=== PATIENT | female | born 1940 | race Caucasian/White ===

== ENCOUNTER → 2022-03-19 08:51 | Outpatient (BNVA) | payer MEDICARE, SELFPAY | PROVIDERS: Visit Provider Podiatrist Foot & Ankle Surgery | DX: M20.41 Other hammer toe(s) (acquired), right foot (principal); M20.42 Other hammer toe(s) (acquired), left foot; E11.8 Type 2 diabetes mellitus with unspecified complications; L60.3 Nail dystrophy; I73.9 Peripheral vascular disease, unspecified | CPT/HCPCS: 11056; 11721; 99204 ==

== ENCOUNTER → 2022-03-22 09:58 | Outpatient (BNVA) | payer MEDICARE, SELFPAY | PROVIDERS: Visit Provider Podiatrist Foot & Ankle Surgery | DX: I73.9 Peripheral vascular disease, unspecified (principal); R09.89 Other specified symptoms and signs involving the circulatory and respiratory systems | CPT/HCPCS: 93922 ==

== ENCOUNTER → 2022-04-08 11:47 | Outpatient (BNVA) | payer MEDICARE, SELFPAY | PROVIDERS: PCP Family Medicine; Visit Provider Internal Medicine | DX: I73.9 Peripheral vascular disease, unspecified (principal); E11.9 Type 2 diabetes mellitus without complications; Z79.84 Long term (current) use of oral hypoglycemic drugs; I10 Essential (primary) hypertension | CPT/HCPCS: 99204 ==

== ENCOUNTER → 2022-07-16 11:23 | Outpatient (BNVA) | payer MEDICARE, OTHER, SELFPAY | PROVIDERS: PCP Family Medicine; Visit Provider Podiatrist Foot & Ankle Surgery | DX: E11.8 Type 2 diabetes mellitus with unspecified complications (principal); L60.3 Nail dystrophy; I73.9 Peripheral vascular disease, unspecified; M20.42 Other hammer toe(s) (acquired), left foot; M20.41 Other hammer toe(s) (acquired), right foot | CPT/HCPCS: 11056; 11721 ==

== ENCOUNTER → 2022-10-31 09:10 | Outpatient (BNVA) | payer MEDICARE, OTHER, SELFPAY | PROVIDERS: PCP Family Medicine; Visit Provider Podiatrist Foot & Ankle Surgery | DX: E11.8 Type 2 diabetes mellitus with unspecified complications (principal); I73.9 Peripheral vascular disease, unspecified; L84 Corns and callosities; L60.3 Nail dystrophy; M20.42 Other hammer toe(s) (acquired), left foot; M20.41 Other hammer toe(s) (acquired), right foot | CPT/HCPCS: 11056; 11721; 73630 ==

== ENCOUNTER → 2023-01-30 08:40 | Outpatient (BNVA) | payer MEDICARE, OTHER, SELFPAY | PROVIDERS: PCP Family Medicine; Visit Provider Podiatrist Foot & Ankle Surgery | DX: E11.8 Type 2 diabetes mellitus with unspecified complications (principal); L60.3 Nail dystrophy; I73.9 Peripheral vascular disease, unspecified; L84 Corns and callosities; M20.42 Other hammer toe(s) (acquired), left foot; M20.41 Other hammer toe(s) (acquired), right foot | CPT/HCPCS: 11056; 11721 ==

== ENCOUNTER → 2023-03-11 14:59 | Outpatient (BNVA) | payer MEDICARE, OTHER, SELFPAY | PROVIDERS: PCP Family Medicine; Visit Provider Podiatrist Foot & Ankle Surgery | DX: L60.3 Nail dystrophy (principal); I73.9 Peripheral vascular disease, unspecified; E11.8 Type 2 diabetes mellitus with unspecified complications; L84 Corns and callosities | CPT/HCPCS: 11055; 11721 ==

== ENCOUNTER → 2023-03-14 15:03 | Outpatient (BNVA) | payer MEDICARE, SELFPAY | PROVIDERS: PCP Family Medicine; Visit Provider Nurse Practitioner Family | DX: M79.641 Pain in right hand (principal) | CPT/HCPCS: 73130; 81000 ==

== ENCOUNTER → 2023-04-23 08:47 | Outpatient (BNVA) | payer MEDICARE, SELFPAY | PROVIDERS: PCP Family Medicine; Visit Provider Podiatrist Foot & Ankle Surgery | DX: I73.9 Peripheral vascular disease, unspecified; L60.3 Nail dystrophy; L97.512 Non-pressure chronic ulcer of other part of right foot with fat layer exposed; L97.412 Non-pressure chronic ulcer of right heel and midfoot with fat layer exposed; E11.621 Type 2 diabetes mellitus with foot ulcer | CPT/HCPCS: 99213 ==

== ENCOUNTER → 2023-04-25 08:05 | Outpatient (BNVA) | payer MEDICARE, SELFPAY | PROVIDERS: PCP Family Medicine; Visit Provider Thoracic Surgery (Cardiothoracic Vascular Surgery) | DX: E11.52 Type 2 diabetes mellitus with diabetic peripheral angiopathy with gangrene (principal); E11.621 Type 2 diabetes mellitus with foot ulcer; L89.892 Pressure ulcer of other site, stage 2; L89.612 Pressure ulcer of right heel, stage 2 | CPT/HCPCS: 11042; 97597; 99213; A6210 ==

== ENCOUNTER → 2023-05-02 10:19 | Outpatient (BNVA) | payer MEDICARE, SELFPAY | PROVIDERS: PCP Family Medicine; Visit Provider Nurse Practitioner Family | DX: E11.52 Type 2 diabetes mellitus with diabetic peripheral angiopathy with gangrene (principal); E11.621 Type 2 diabetes mellitus with foot ulcer; L97.511 Non-pressure chronic ulcer of other part of right foot limited to breakdown of skin; L97.411 Non-pressure chronic ulcer of right heel and midfoot limited to breakdown of skin | CPT/HCPCS: 97597 ==

== ENCOUNTER → 2023-05-09 13:23 | Outpatient (BNVA) | payer MEDICARE, SELFPAY | PROVIDERS: PCP Family Medicine; Visit Provider Thoracic Surgery (Cardiothoracic Vascular Surgery) | DX: E11.52 Type 2 diabetes mellitus with diabetic peripheral angiopathy with gangrene (principal); E11.621 Type 2 diabetes mellitus with foot ulcer; L97.411 Non-pressure chronic ulcer of right heel and midfoot limited to breakdown of skin | CPT/HCPCS: 97597; A6219 ==

== ENCOUNTER → 2023-06-18 09:15 | Outpatient (BNVA) | payer MEDICARE, SELFPAY | PROVIDERS: PCP Family Medicine; Visit Provider Podiatrist Foot & Ankle Surgery | DX: L97.512 Non-pressure chronic ulcer of other part of right foot with fat layer exposed (principal); E11.8 Type 2 diabetes mellitus with unspecified complications; I73.9 Peripheral vascular disease, unspecified; L60.3 Nail dystrophy | CPT/HCPCS: 87070; 87075; 87077; 87186; 87205; 99213 ==

== ENCOUNTER → 2023-06-23 13:10 | Outpatient (BNVA) | payer MEDICARE, SELFPAY | PROVIDERS: PCP Family Medicine; Visit Provider Nurse Practitioner Family | DX: E11.52 Type 2 diabetes mellitus with diabetic peripheral angiopathy with gangrene (principal); E11.621 Type 2 diabetes mellitus with foot ulcer; L97.512 Non-pressure chronic ulcer of other part of right foot with fat layer exposed | CPT/HCPCS: 11042; 99213; A6197 ==

== ENCOUNTER 2023-06-30 13:45 | Outpatient (CLI) | payer MEDICARE, SELFPAY ==
--- NOTE | 2023-06-30 13:55 | XR_ITS ---
WS: [id number] Exam: XR foot RT min 3V* [id number] Date/Time of Exam: 06/30/2023 2:08 PM Reason For Exam: E11.621 - Type 2 diabetes mellitus with foot ulcer There is soft tissue swelling and ulceration of the distal end of the first toe with cortical destruc tion of the distal tuft of the distal first phalanx. Acute osteomyelitis is considered likely. There has been amputation of the distal aspect of the third toe. Degenerative changes in the IP joints and first MP joint. No acute fractures seen. Calcaneal spurs. Degenerative changes in the midfoot joints. Periosteal thickening of the fourth metatarsal. IMPRESSION: 1. Soft tissue swelling and ulceration of the distal end of the first toe with cortical destruction o f the distal tuft of the first toe. This is suspicious for acute osteomyelitis. 2. No other sign of acute bone destruction or fracture. 3. Degenerative changes. Amputation of the distal aspect of the third toe..
== END 2023-06-30 13:46 | disposition home or self-care (01) ==
LOC: RAD 13:46
PROVIDERS: PCP Family Medicine; Visit Provider Nurse Practitioner Family
DX: E11.621 Type 2 diabetes mellitus with foot ulcer (principal); L97.509 Non-pressure chronic ulcer of other part of unspecified foot with unspecified severity; E11.42 Type 2 diabetes mellitus with diabetic polyneuropathy; E11.52 Type 2 diabetes mellitus with diabetic peripheral angiopathy with gangrene; L97.512 Non-pressure chronic ulcer of other part of right foot with fat layer exposed
CPT/HCPCS: 11042; 73630; 99212

== ENCOUNTER → 2023-07-02 11:21 | Outpatient (BNVA) | payer MEDICARE, SELFPAY | PROVIDERS: PCP Family Medicine; Visit Provider Podiatrist Foot & Ankle Surgery | DX: F40.231 Fear of injections and transfusions; E11.42 Type 2 diabetes mellitus with diabetic polyneuropathy; M86.8X7 Other osteomyelitis, ankle and foot | CPT/HCPCS: 99214 ==

== ENCOUNTER 2023-07-04 10:19 | Day surgery (SDC) | payer MEDICARE, SELFPAY ==
[2023-07-04] VITALS (10 sets, daily range): BP systolic 125–160; BP diastolic 59–88; PULSE 69–97; RESP 16–20; TEMP 36.2–36.7; O2SAT 94–100; BMI 29.8
--- NOTE | 2023-07-04 11:06 | W.PM.OPSUD ---
Surgery/Procedure H&P Update DATE OF PROCEDURE: July 04, 2023 DATE H&P PERFORMED: 07/02/23 H&P UPDATE INFORMATION: I have reviewed H&P completed within last 30 days, I have examined patient prior to procedure, No changes to prior documentation and [place] [facility] [place] indicated CHANGES TO PREVIOUS DOCUMENTATION: None PREOP DIAGNOSIS: Osteomyelitis right great toe PLANNED PROCEDURE: Operation Date: 07/04/23 12:00 Proposed Procedures p Amputation Right Great Toe(Right) - Abel Vargas DPM
[2023-07-04] MEDS: clindamycin 600 MG/50 ML PREMIX 100 MG IV (11:33)
[2023-07-04] MEDS: sodium chloride 0.9% 1,000 ML 30 ML IV (11:33)
--- NOTE | 2023-07-04 11:39 | ANES.PREANE2 ---
Pre-Anesthetic Assessment Height/Weight: Height 1.68 m Weight 83.915 kg Temp Pulse Resp BP Pulse Ox O2 Del Method 97.1 F L 97 16 138/88 100 Room Air 07/04/23 10:46 07/04/23 10:46 07/04/23 10:46 07/04/23 10:46 07/04/23 10:46 07/04/23 10:46 Preop Diagnosis: Osteomyelitis right great toe Operation Date: 07/04/23 12:00 Proposed Procedures p Amputation Right Great Toe(Right) - SHANNAN AyersM Was Beta Garett taken within 24 hours: Yes Was Clonidine taken within 24 hours: N/A Last intake: Intake Last Liquid Date 07/03/23 Last Liquid Time 19:30 Last Solid Date 07/03/23 Last Solid Time 18:00 Social No alcohol and No tobacco Exam alert and oriented x 3 Airway Submandibular: within normal limits Cervical ROM: within normal limits Mallampati: Class II Dentition: false Comments: Comments: Upper & lower History/ROS No significant history except as noted and No significant complaints CV/HEM Atrial Fibrillation Metabolic Diabetes Mellitus, Hyperlipidemia and Thyroid Disease Anesthetic Plan ASA status: 3 Anesthesia: General Other: Pt extremely terrified of needles; refuses PIV pre-induction or labs. Explained r/b/a inhalation induction with PIV and labs post-induction. Pt agreed. Risk of > 500 ml blood loss (7ml/kg in children): No Medications/Allergies Home Medications Medication Instructions Recorded Confirmed Last Taken Type aspirin 81 mg tablet,delayed 81 mg PO DAILY 02/05/22 07/04/23 07/03/23 History release (Adult Aspirin Regimen) Diabetic Shoes with 3 Pairs of #1 ea 03/19/22 07/02/23 Unknown Rx Inserts solifenacin 5 mg tablet (Vesicare) 5 mg PO DAILY 30 days #30 tabs 03/12/23 07/03/23 07/03/23 Rx metoprolol tartrate 25 mg tablet See Rx Instructions .Route 03/19/23 07/03/23 Unknown Rx .COMPLEX #30 tabs linezolid 600 mg tablet 600 mg PO BID #28 tabs 06/30/23 07/03/23 07/03/23 Rx Cinnamon 1,000 mg PO DAILY 07/03/23 07/04/23 07/03/23 History Multi Vitamin 07/03/23 07/03/23 History cranberry 650 mg PO DAILY 07/03/23 07/03/23 07/03/23 History furosemide 40 mg tablet 40 mg PO DAILY 07/03/23 07/03/23 07/03/23 History glipizide 5 mg tablet 5 mg PO BID 07/03/23 07/03/23 07/03/23 History hydralazine 50 mg tablet 50 mg PO BID 07/03/23 07/03/23 07/03/23 History levothyroxine 88 mcg tablet 88 mcg PO DAILY 07/03/23 07/03/23 07/03/23 History metoprolol tartrate 25 mg tablet 12.5 mg PO BID 07/03/23 07/03/23 07/03/23 History potassium chloride 10 mEq 10 meq PO DAILY 07/03/23 07/03/23 07/03/23 History tablet,extended release quetiapine 25 mg tablet 25 mg PO DAILY 07/03/23 07/03/23 07/03/23 History rosuvastatin 10 mg tablet 10 mg PO DAILY 07/03/23 07/03/23 07/03/23 History Allergies Allergy/AdvReac Type Severity Reaction Status Date / Time amoxicillin Allergy Unknown Unknown Verified 07/02/23 11:39 baclofen Allergy Unknown Unknown Verified 07/02/23 11:39 cortisone Allergy Unknown Unknown Verified 07/02/23 11:39 gabapentin Allergy Unknown Unknown Verified 07/02/23 11:39 shellfish derived Allergy Unknown Unknown Verified 07/02/23 11:39 Jwnsnoz-LLS-XuF Reductase Allergy Unknown Unknown Verified 07/02/23 11:39 Inhibitor PFSH Anesthesia Medical History Upper respiratory infection Urinary tract infection Encounter for laboratory test Urinary incontinence Dementia History of [place] (myocardial infarction) Essential hypertension Mixed hyperlipidemia Diabetes type 2, controlled Social History Smoking and tobacco/nicotine status: never used tobacco/nicotine Data Anesthesia Cardiac Studies: No Data to Display
[2023-07-04] MEDS: lidocaine 2% INJ 20 mL INJECTION (11:50)
[2023-07-04] MEDS: BUPivacaine 0.5% INJ 30 mL INJECTION (11:50)
--- NOTE | 2023-07-04 11:56 | W.PM.BPON ---
Date of Procedure: 07/04/23 Surgeon: Abel Vargas DPM Cement Rubber(s): Austin Procedure(s) performed: Right great toe amputation Findings of the procedure(s): Osteomyelitis distal phalanx right great toe Estimated blood loss: 5 mL Specimen(s) removed: Right great toe sent to pathology Post-operative diagnosis: Osteomyelitis distal phalanx right great toe Curative level of amputation, no complications with anesthesia or surgery
--- NOTE | 2023-07-04 11:57 | P.OP_ITS ---
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 CPT code 18303 Implants: 3-0 Vicryl, 4-0 nylon Pathology: Right great toe sent to pathology for permanent Surgeon: Abel Vargas DPM Electric Motor [employer] Generator Assembler: [place] Estimated blood loss: 5 9 IV fluids: 0 Urine output: 0 Complications: None Brief History: Patient examined and evaluated, findings and treatment options discussed with patient at length. Patient has a severe needle phobia has not had labs drawn, states that she has not followed with her business management specialist because she has not gotten labs. She has acute osteomyelitis distal phalanx right great toe discussed surgical amputation versus surgical debridement, bone biopsy and PICC line. Patient refuses PICC line due to needle phobia. Wants to be sedated before her IV is started and is requesting amputation right hallux as source control for infection. I reviewed at length with the patient, the risks, potential complications, benefits, alternatives, expectations, and typical outcomes associated with the surgery. The risks and potential complications were explained in detail, including but not limited to infection, wound dehiscence or soft tissue complications, bleeding and hematoma, chronic edema, neuritis or nerve damage producing numbness or chronic pain, CRPS, failure to relieve pain or worsening pain, thick / painful / unsightly scar, limited motion / stiffness, malposition, delayed union, malunion, or nonunion, fracture, reaction to implants, anesthetic complications, venous thromboembolism, and deformity recurrence. I discussed the notion of no regrets with the patient as it pertains to complications and outcomes. The patient seemed to understand the nature of the proposed care and required convalescence. They asked appropriate questions, answered to their satisfaction. They are aware no guarantees can be made as to a satisfactory outcome and they understand there may be other possible unforeseen complications or outcomes not listed here that will be treated accordingly if they arise. There were no written or implied guarantees given to the patient. They gave informed consent to proceed. At this time can be scheduled outpatient she is not showing any signs of systemic sepsis, infection is localized to the distal right great toe. Procedure: Under mild sedation the patient was brought to the operating room and remained on the gurney in supine position. A timeout was performed. Anesthesia was then administered by the anesthesia service. Local anesthesia injected by myself consisting of 30 cc of one-to-one mixture 1% lidocaine and 0.5% Marcaine plain and a right Bird block fashion. Well-padded pneumatic tourniquet applied to the right ankle. Right lower extremity was scrubbed, prepped and draped utilizing normal aseptic technique, right foot was elevated and tourniquet inflated to 250 mmHg. Attention was directed to right hallux where full-thickness wound probing to bone at the distal phalanx was appreciated. A tennis racquet incision was carried out full-thickness circumferentially at the first metatarsal phalangeal joint of the right foot with sharp disarticulation through the metatarsal phalangeal joint leaving adequate skin flaps for closure. Right great toe was passed from the operative field in total and sent to pathology for permanent. The incision was irrigated with saline solution. All bleeders were ligated and cauterized as necessary. Extensor and flexor tendons transected at the proximal margin. After further irrigation first metatarsal head was directly visualized and noted to have healthy appearance with appropriate color and density. At the level of amputation skin margins were bleeding and viable without devitalized tissue. This was then reapproximated utilizing 3-0 Vicryl subcutaneous tissue and 4-0 nylon in the skin. Incision was dressed with Adaptic, sterile 4 x 4's, Kerlix and Luis F wrap followed by application of a cam boot. Tourniquet was then deflated and a prompt hyperemic response was noted to the remaining digits of the right foot 2 through 5. Patient tolerated the procedure and anesthesia well and was transferred to the PACU with vital signs stable and vascular status intact. Following a period of postoperative monitoring she will be discharged home is to decrease her activities, rest and elevate her right foot. She was given at home care instructions, scheduled follow-up and my cell phone number to contact me with any postoperative questions or concerns.
[2023-07-04 12:02] LABS: Basophils # 0.1 10^3/uL (0.0-0.1); Basophils % 0.6 %; Eosinophils # 0.2 10^3/uL (0.0-0.8); Eosinophils % 1.9 %; Hematocrit 41.4 % (36-47); Lymphocytes # 1.6 10^3/uL (0.8-4.8); Lymphocytes % 18.6 %; Mean Corpuscular HGB Conc 34.5 g/dL (30-55); Mean Corpuscular Hemoglobin 32.4 pg (27-33); Mean Corpuscular Volume 93.9 fl (85-98); Mean Platelet Volume 8.9 fL (7.4-10.4); Monocytes # 0.6 10^3/uL (0.2-0.9); Monocytes % 6.6 %; Neutrophils % 72.2 %; Nucleated Red Blood Cells % 0 %; Platelet Count 217 10^3/cmm (157-399); Red Blood Count 4.41 10^6/uL (3.85-5.65); Red Cell Distribution Width 13.6 % (12.1-15.1); White Blood Count 8.74 10^3/uL (3.29-11.43)
[2023-07-04 12:29] LABS: Alanine Aminotransferase 11 U/L (0-33); Albumin Level 3.6 g/dL (3.5-5.2); Alkaline Phosphatase 29 U/L (35-105); Blood Urea Nitrogen 22 mg/dL (8-23); Calcium 8.6 mg/dL (8.5-10.5); Carbon Dioxide 26 mmol/L (22-29); Chloride 100 mmol/L (98-107); Chol HDL Ratio 2.69 mg/dL (0.0-4.40); Cholesterol 132 mg/dL (0-200); Creatinine Clr Calc Pharmacy 30.1013; Globulin 3.4 g/dL (1.3-4.6); Glucose 119 mg/dL (65-115); HDL Cholesterol 49 mg/dL (60-100); LDL Cholesterol Calculated 55 mg/dL (50-129); LDL HDL Ratio 1.12 RATIO (0.00-3.22); Osmolality Calculated 294 mOsm/kg (285-295); Sodium 140 mmol/L (136-145); Total Bilirubin 0.6 mg/dL (0.15-1.2); Triglycerides 139 mg/dL (0-150)
[2023-07-04 12:35] LABS: Anion Gap 17.5 (5-19); Aspartate Amino Transferase 23 U/L (0-32); Estmated Average Glucose 174; Hemoglobin A1C 7.7 % (4.0-6.0); Potassium 3.5 mmol/L (3.5-5.1)
[2023-07-04 13:05] LABS: 25 Hydroxy Vitamin D 46 ng/mL (30-100)
--- NOTE | 2023-07-04 17:57 | ANE.PACU2 ---
Inpatient post-anesthesia follow up: Airway intact: Yes Vital signs: Temperature 97.3 F Pulse Rate 80 Respiratory Rate 18 Blood Pressure 158/79 Pulse Oximetry 100 Oxygen Delivery Me thod Room Air Oxygen Flow Rate Fraction of Inspir ed Oxygen Hydration adequate: Yes Nausea and vomiting: No Pain level: 1 Mental status: Baseline
[2023-07-12 14:35] LABS: PTH Related Peptide (Protein) 16 pg/mL (11-20)
== END 2023-07-04 12:59 | disposition home or self-care (01) ==
PROVIDERS: PCP Nurse Practitioner Family; Visit Provider Podiatrist Foot & Ankle Surgery
PROC: (CPT 28820; principal; 2023-07-04 11:50)
DX: L97.524 Non-pressure chronic ulcer of other part of left foot with necrosis of bone (principal); I48.91 Unspecified atrial fibrillation; E11.9 Type 2 diabetes mellitus without complications; Z79.82 Long term (current) use of aspirin; E78.2 Mixed hyperlipidemia; I25.2 Old myocardial infarction
CPT/HCPCS: 28820; 80053; 80061; 82306; 82542; 83036; 84443; 85025; 88305; 88311; J3490; J7030

== ENCOUNTER → 2023-07-09 08:15 | Outpatient (BNVA) | payer MEDICARE, SELFPAY | PROVIDERS: PCP Nurse Practitioner Family; Visit Provider Podiatrist Foot & Ankle Surgery | DX: Z98.890 Other specified postprocedural states (principal) | CPT/HCPCS: 99024 ==

== ENCOUNTER → 2023-07-17 12:50 | Outpatient (BNVA) | payer MEDICARE, SELFPAY | PROVIDERS: PCP Nurse Practitioner Family; Visit Provider Nurse Practitioner Family | DX: E11.8 Type 2 diabetes mellitus with unspecified complications (principal); N30.00 Acute cystitis without hematuria; R32 Unspecified urinary incontinence | CPT/HCPCS: 82570; 84156 ==

== ENCOUNTER → 2023-08-01 14:10 | Outpatient (BNVA) | payer MEDICARE, SELFPAY | PROVIDERS: PCP Nurse Practitioner Family; Visit Provider Podiatrist Foot & Ankle Surgery | DX: M79.671 Pain in right foot (principal); E11.42 Type 2 diabetes mellitus with diabetic polyneuropathy; M20.41 Other hammer toe(s) (acquired), right foot; M20.42 Other hammer toe(s) (acquired), left foot; M21.41 Flat foot [pes planus] (acquired), right foot; M21.42 Flat foot [pes planus] (acquired), left foot; L60.3 Nail dystrophy; M72.2 Plantar fascial fibromatosis | CPT/HCPCS: 11721; 73630; 99213 ==

== ENCOUNTER → 2023-08-25 13:09 | Outpatient (BNVA) | payer MEDICARE, SELFPAY | PROVIDERS: PCP Nurse Practitioner Family; Visit Provider Podiatrist Foot & Ankle Surgery | DX: E11.621 Type 2 diabetes mellitus with foot ulcer; L97.522 Non-pressure chronic ulcer of other part of left foot with fat layer exposed; E11.42 Type 2 diabetes mellitus with diabetic polyneuropathy; M20.41 Other hammer toe(s) (acquired), right foot; M20.42 Other hammer toe(s) (acquired), left foot; M21.41 Flat foot [pes planus] (acquired), right foot; M21.42 Flat foot [pes planus] (acquired), left foot; L60.3 Nail dystrophy; M72.2 Plantar fascial fibromatosis | CPT/HCPCS: 11042 ==

== ENCOUNTER 2023-09-14 08:03 | Emergency (ER) | payer MEDICARE, SELFPAY ==
[2023-09-14 08:05] VITALS: BP 142/78; PULSE 111; TEMP 36.8; O2SAT 98; BMI 29.7
--- NOTE | 2023-09-14 08:05 | XRR_ITS ---
PROCEDURE INFORMATION: Exam: XR Right Hip Exam date and time: 09/14/2023 8:18 AM Age: 83 years old Clinical indication: Injury or trauma; Fall; Blunt trauma (contusions or hematomas); Right; Prior surgery; Surgery date: 6+ months; Surgery type: RT hip; Additional info: Fall 3 days ago TECHNIQUE: Imaging protocol: Radiologic exam of the right hip. Views: 1 view hip with pelvis when performed. COMPARISON: No relevant prior studies available. FINDINGS: Bones/joints: Surgical changes of right hip arthroplasty with anatomic alignment. Surgical changes of greater trochanter open reduction with internal fixation. No hardware complications. Moderate degenerative disease of the right sacroiliac joint and symphysis pubis. No acute fracture or dislocation. Soft tissues: Unremarkable. Vasculature: Vascular calcifications. XR/XR hip RT 2-3V wo/w pel* [id number] IMPRESSION: No acute fracture or dislocation.
--- NOTE | 2023-09-14 08:06 | ED_ITS ---
HPI - Fall General: Chief Complaint: Extremity Injury, Lower Stated Complaint: R hip pain Time Seen by Provider: 09/14/23 08:04 Source: patient and EMS Mode of arrival: EMS Limitations: no limitations History of Present Illness: 83-year-old female who had had a fall 2 days ago. States she landed on her right hip she had surgery on her right hip before states she was ambulatory but had worsening pain especially with ambulation has had a hard time walking today denies any other injuries from her fall. Associated symptoms-after fall: Denies abdominal pain, chest pain, headache(s) or neck pain Review of Systems Const: Denies: fever(s), chills, body aches or change in appetite ENMT: Denies: throat pain or dental pain Card: Denies: chest pain Resp: Denies: dyspnea GI: Denies: abdominal pain, nausea, vomiting or diarrhea Musc: Reports: extremity pain; Denies: neck pain or back pain Skin/Breast: Denies: rash Neuro: Denies: headache(s) PFSH ED PFSH: Medical History Upper respiratory infection Urinary tract infection Encounter for laboratory test Urinary incontinence Dementia History of [place] (myocardial infarction) Essential hypertension Mixed hyperlipidemia Diabetes type 2, controlled Social History Smoking and tobacco/nicotine status: never used tobacco/nicotine Physical Exam Const: COMMON NORMALS: no acute distress and healthy appearing HENMT: COMMON NORMALS: normocephalic and atraumatic HEAD & SCALP: normocephalic and atraumatic Eye: COMMON NORMALS: conjunctivae normal CONJUNCTIVA: Yes conjunctivae normal Neck/C-Spine: COMMON NORMALS: full ROM and supple Chest: COMMONS NORMALS: normal inspection of the chest Resp: COMMON NORMALS: normal respiratory effort, No retractions, No use of accessory muscles and clear to auscultation bilaterally AUSCULTATION: clear to auscultation bilaterally Cardio: COMMON NORMALS: regular rate, regular rhythm and No murmurs present (Cardio) RATE: regular rate RHYTHM: regular rhythm GI: COMMON NORMALS: Normal to inspection, nondistended, normoactive bowel sounds present, Soft to palpation, non-tender and no masses PALPATION: Yes Soft to palpation Extremity: NARRATIVE EXTREMITY EXAM: tenderness over right hip Neuro: COMMON NORMALS: moves all extremities and no focal motor deficits Psych: COMMON NORMALS: mental status grossly normal, Normal thought process present and cooperative THOUGHT PROCESS: Normal thought process present Skin: COMMON NORMALS: no rashes or lesions noted and no wounds GENERAL SKIN EXAM: no rashes or lesions noted Course Vital Signs: Vital signs: Vital Signs Temperature 98.2 F 09/14/23 08:05 Pulse Rate 100 09/14/23 08:59 Blood Pressure 163/74 09/14/23 08:59 Pulse Oximetry 96 09/14/23 08:59 Oxygen Delivery Me thod Nasal Cannula 09/14/23 08:59 MDM - Fall Medical Decision Making Patient presents here with a contusion from a fall x-ray CT is normal patient stable for discharge back with family Medical Records I reviewed the patient's medical records. Lab Data Radiology Impressions Hip/Pelvis X-Ray 09/14/23 08:05 IMPRESSION: No acute fracture or dislocation. Pelvis CT 09/14/23 10:10 IMPRESSION: No acute fracture or dislocation. COMMENTS: Consistent with the [employer]'s Incidental Findings Committee white paper (J Am Misha Radiol 2018): Any incidental renal lesion less than 1 cm or classified as too small to characterize, or any incidental cystic renal lesion characterized as simple-appearing, is likely benign. No follow-up imaging is recommended for these lesions per consensus recommendations based on imaging criteria. All radiology interpretation(s) finalized by discharge Discharge Plan Discharge Patient Disposition: Home Clinical Impression: Fall Contusion of hip Qualifiers: Encounter type: initial encounter Laterality: right Qualified Code(s): S70.01XA - Contusion of right hip, initial encounter Condition: Stable Prescriptions: New hydrocodone-acetaminophen 5-325 mg tablet 1 tab PO Q6H PRN (Reason: pain) Qty: 14 0RF No Action aspirin [Adult Aspirin Regimen] 81 mg tablet,delayed release (DR/EC) 81 mg PO DAILY solifenacin [Vesicare] 5 mg tablet 5 mg PO DAILY 30 Days Qty: 30 0RF (DME) Diabetic Shoes with toe filler to right great toe 3 Pairs of Inserts See Rx Instructions .Route .MEDSUPPLY Qty: 1 0RF Rx Instructions: As directed by HOME quetiapine 25 mg tablet 25 mg PO QPM furosemide 40 mg tablet 40 mg PO DAILY levothyroxine 88 mcg tablet 88 mcg PO DAILY glipizide 5 mg tablet 5 mg PO BID rosuvastatin 10 mg tablet 10 mg PO DAILY Cinnamon 2,000 mg PO DAILY Daily Multi-Vitamin Tablet 1 tab PO DAILY hydrocodone-acetaminophen 5-325 mg tablet 1 tab PO Q6H PRN (Reason: Pain) cranberry extract 650 mg Capsule 650 mg PO DAILY Rx Instructions: administer with a meal potassium chloride 10 mEq tablet extended release 10 meq PO DAILY hydralazine 50 mg tablet 50 mg PO BID metoprolol tartrate 25 mg tablet 12.5 mg PO BID Discharge Orders: Discharge ED (Routine); Ordered 09/14/23 Ordered By: Tiny Perez Other Ambulatory Orders: DME: Wheelchair (Order) Location: None Selected Ordered By: Tiny Perez Referrals: CRYSTAL Couch, DIRECTOR OF LEADERSHIP DEVELOPMENT [Primary Care Provider] - Discharge Diet: Advance as tolerated Discharge Activity: Resume usual activity Patient Instructions: Hip Contusion (ED), Opioid Safety Coding Level of Care Code ED Outside Residential Sales Professional for Adrian Nobles
[2023-09-14 08:59] VITALS: BP 163/74; PULSE 100; O2SAT 96
[2023-09-14 10:00] VITALS: BP 120/72; PULSE 110; O2SAT 97
--- NOTE | 2023-09-14 10:10 | CTR_ITS ---
PROCEDURE INFORMATION: Exam: CT Pelvis Without Contrast; Skeletal Exam date and time: 09/14/2023 11:05 AM Age: 83 years old Clinical indication: Injury or trauma; Fall; Blunt trauma (contusions or hematomas); Right; Hip and pelvic region; Prior surgery; Surgery date: 6+ months; Surgery type: Lev hips TECHNIQUE: Imaging protocol: Computed tomography of the pelvis without contrast. Exam focused on the skeleton. Radiation optimization: All CT scans at this facility use at least one of these dose optimization techniques: automated exposure control; mA and/or kV adjustment per patient size (includes targeted exams where dose is matched to clinical indication); or iterative reconstruction. COMPARISON: CR XR hip RT 2-3V wo/w pel* [id number] 09/14/2023 8:18 AM RADIATION DOSE METRICS: Total DLP (mGy-cm): 522.34 FINDINGS: Gallbladder and bile ducts: Calcified gallstones. Kidneys and ureters: Nonobstructing stone in the lower pole of the right kidney measuring 4 mm. 2 mm nonobstructing stone in the lower pole of the left kidney. Bilateral simple cysts in the kidneys. Intestine: Diverticulosis of the colon. Vasculature: Vascular calcifications. Bones/joints: Demineralization of the visualized bones. Moderate degenerative disease of bilateral sacroiliac joints. Ankylosis of the facet joint of the lower lumbar spine. Post bilateral total hip arthroplasty. Chondrocalcinosis of the symphysis pubis. No acute fracture or dislocation. Soft tissues: Unremarkable. CT/CT pelvis wo con [id number] IMPRESSION: No acute fracture or dislocation. COMMENTS: Consistent with the [employer]'s Incidental Findings Committee white paper (J Am Misha Radiol 2018): Any incidental renal lesion less than 1 cm or classified as too small to characterize, or any incidental cystic renal lesion characterized as simple-appearing, is likely benign. No follow-up imaging is recommended for these lesions per consensus recommendations based on imaging criteria.
[2023-09-14 11:54] VITALS: BP 121/52; PULSE 95; O2SAT 96
== END 2023-09-14 11:50 | disposition home or self-care (01) ==
PROVIDERS: Emergency Provider Emergency Medicine; PCP Nurse Practitioner Family
DX: S70.01XA Contusion of right hip, initial encounter (principal); Z79.82 Long term (current) use of aspirin; Z79.84 Long term (current) use of oral hypoglycemic drugs; F03.90 Unspecified dementia, unspecified severity, without behavioral disturbance, psychotic disturbance, mood disturbance, and anxiety; I25.2 Old myocardial infarction; I10 Essential (primary) hypertension; E78.2 Mixed hyperlipidemia; E11.9 Type 2 diabetes mellitus without complications; W19.XXXA Unspecified fall, initial encounter
CPT/HCPCS: 72192; 73502; 99284

== ENCOUNTER → 2023-10-08 11:13 | Outpatient (BNVA) | payer MEDICARE, SELFPAY | PROVIDERS: PCP Nurse Practitioner Family; Visit Provider Podiatrist Foot & Ankle Surgery | DX: E11.8 Type 2 diabetes mellitus with unspecified complications (principal); Z89.411 Acquired absence of right great toe; E11.42 Type 2 diabetes mellitus with diabetic polyneuropathy; L60.3 Nail dystrophy; M72.2 Plantar fascial fibromatosis; E11.621 Type 2 diabetes mellitus with foot ulcer; L97.522 Non-pressure chronic ulcer of other part of left foot with fat layer exposed; L97.421 Non-pressure chronic ulcer of left heel and midfoot limited to breakdown of skin | CPT/HCPCS: 99213 ==

== ENCOUNTER → 2023-10-16 11:58 | Outpatient (BNVA) | payer MEDICARE, SELFPAY | PROVIDERS: PCP Nurse Practitioner Family; Visit Provider Podiatrist Foot & Ankle Surgery | DX: E11.621 Type 2 diabetes mellitus with foot ulcer; L97.512 Non-pressure chronic ulcer of other part of right foot with fat layer exposed; L97.312 Non-pressure chronic ulcer of right ankle with fat layer exposed; Z89.411 Acquired absence of right great toe; E11.42 Type 2 diabetes mellitus with diabetic polyneuropathy | CPT/HCPCS: 29445 ==

== ENCOUNTER → 2023-10-22 09:45 | Outpatient (BNVA) | payer MEDICARE, SELFPAY | PROVIDERS: PCP Nurse Practitioner Family; Visit Provider Podiatrist Foot & Ankle Surgery | DX: E11.621 Type 2 diabetes mellitus with foot ulcer; L97.512 Non-pressure chronic ulcer of other part of right foot with fat layer exposed; L97.312 Non-pressure chronic ulcer of right ankle with fat layer exposed; E11.42 Type 2 diabetes mellitus with diabetic polyneuropathy; M20.41 Other hammer toe(s) (acquired), right foot; M20.42 Other hammer toe(s) (acquired), left foot | CPT/HCPCS: 29445 ==

== ENCOUNTER → 2023-10-31 13:11 | Outpatient (BNVA) | payer MEDICARE, SELFPAY | PROVIDERS: PCP Nurse Practitioner Family; Visit Provider Podiatrist Foot & Ankle Surgery | DX: E11.621 Type 2 diabetes mellitus with foot ulcer; L97.512 Non-pressure chronic ulcer of other part of right foot with fat layer exposed; L97.312 Non-pressure chronic ulcer of right ankle with fat layer exposed; Z51.89 Encounter for other specified aftercare; Z89.411 Acquired absence of right great toe; E11.42 Type 2 diabetes mellitus with diabetic polyneuropathy | CPT/HCPCS: 29445 ==

== ENCOUNTER → 2023-11-10 12:35 | Outpatient (BNVA) | payer MEDICARE, SELFPAY | PROVIDERS: PCP Nurse Practitioner Family; Visit Provider Podiatrist Foot & Ankle Surgery | DX: E11.621 Type 2 diabetes mellitus with foot ulcer; L97.512 Non-pressure chronic ulcer of other part of right foot with fat layer exposed; L97.312 Non-pressure chronic ulcer of right ankle with fat layer exposed; Z89.411 Acquired absence of right great toe; E11.42 Type 2 diabetes mellitus with diabetic polyneuropathy; Z51.89 Encounter for other specified aftercare | CPT/HCPCS: 29445 ==

== ENCOUNTER → 2023-11-17 12:49 | Outpatient (BNVA) | payer MEDICARE, SELFPAY | PROVIDERS: PCP Nurse Practitioner Family; Visit Provider Podiatrist Foot & Ankle Surgery | DX: E11.621 Type 2 diabetes mellitus with foot ulcer; L97.312 Non-pressure chronic ulcer of right ankle with fat layer exposed; Z89.411 Acquired absence of right great toe; E11.42 Type 2 diabetes mellitus with diabetic polyneuropathy | CPT/HCPCS: 29445 ==

== ENCOUNTER → 2023-11-24 14:42 | Outpatient (BNVA) | payer MEDICARE, SELFPAY | PROVIDERS: PCP Nurse Practitioner Family; Visit Provider Podiatrist Foot & Ankle Surgery | DX: E11.42 Type 2 diabetes mellitus with diabetic polyneuropathy (principal); M20.41 Other hammer toe(s) (acquired), right foot; M20.42 Other hammer toe(s) (acquired), left foot; E11.621 Type 2 diabetes mellitus with foot ulcer; L97.312 Non-pressure chronic ulcer of right ankle with fat layer exposed | CPT/HCPCS: 99213 ==

== ENCOUNTER → 2023-12-09 15:30 | Outpatient (BNVA) | payer MEDICARE, SELFPAY | PROVIDERS: PCP Nurse Practitioner Family; Visit Provider Podiatrist Foot & Ankle Surgery | DX: E11.42 Type 2 diabetes mellitus with diabetic polyneuropathy (principal); M20.41 Other hammer toe(s) (acquired), right foot; M20.42 Other hammer toe(s) (acquired), left foot; E11.621 Type 2 diabetes mellitus with foot ulcer; L97.312 Non-pressure chronic ulcer of right ankle with fat layer exposed | CPT/HCPCS: 99213 ==

== ENCOUNTER → 2024-01-07 08:03 | Outpatient (BNVA) | payer MEDICARE, SELFPAY | PROVIDERS: PCP Nurse Practitioner Family; Visit Provider Podiatrist Foot & Ankle Surgery | DX: E11.621 Type 2 diabetes mellitus with foot ulcer; L97.312 Non-pressure chronic ulcer of right ankle with fat layer exposed; Z89.411 Acquired absence of right great toe; E11.42 Type 2 diabetes mellitus with diabetic polyneuropathy | CPT/HCPCS: 99213 ==

== ENCOUNTER 2025-02-17 12:01 | Inpatient (IN) | payer MEDICARE, SELFPAY ==
[2025-02-17] VITALS (43 sets, daily range): BP systolic 102–163; BP diastolic 52–124; PULSE 65–142; RESP 11–29; TEMP 36.5–37.2; O2SAT 91–100; BMI 26.4
--- NOTE | 2025-02-17 12:05 | ECG_ITS ---
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 Measurements Intervals [place] Rate: 127 P: 0 DC: 0 QRS: -78 QRSD: 143 T: 7 QT: 357 QTc: 521 Interpretive Statements ATRIAL FIBRILLATION WITH RAPID VENTRICULAR RESPONSE RIGHT BUNDLE BRANCH BLOCK [120+ ms QRS DURATION, UPRIGHT V1, 40+ ms S IN I/aVL/V4/V5/V6] LEFT ANTERIOR FASCICULAR BLOCK [QRS AXIS <= -45, QR IN I, RS IN II] No previous ECG available for comparison Electronically Signed On 02-19-2025 12:03:32 CDT by Dylon Ochoa M.D. [email or web address]
--- NOTE | 2025-02-17 12:06 | XR_ITS ---
WS: [id number] XR chest 1V portable [id number] REASON FOR EXAM: dyspnea A-fib RVR FINDINGS: Moderate tortuosity of the ascending and descending thoracic aorta with calcification. Cardiomegaly. No significant central pulmonary venous congestion. Opacification of the left lower hemithorax. Appears to be due to pleural effusion atelectasis and diffuse reticular and groundglass opacities within the left lower lung. Moderate degenerative spondylosis in the thoracic spine. 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 XR/XR chest 1V portable [id number] IMPRESSION: Abnormality in the left lower hemithorax atypical for congestive failure more c ompatible with pneumonitis and effusion.
--- NOTE | 2025-02-17 12:16 | ED_ITS ---
HPI - Arrhythmia/Palpitations 2 General: Chief Complaint: Arrhythmia/Palpitations Stated Complaint: afib with rvr Time Seen by Provider: 02/17/25 12:05 History of Present Illness: 84-year-old female presents emergency ro om from detention with complaints of elevated blood sugar and rapid heart rate. Patient has a history of A-fib. On arrival here she is in A-fib with RVR. She has dementia she is unable to give any history to contribute all history is from EMS and detention as well as old records. Related Data Home Medications ?Medication ?Instructions ?Recorded ?Confirmed aluminum-mag hydroxide-simethicone 30 ml PO QID PRN in digestion 02/18/25 02/18/25 200 mg-200 mg-20 mg/5 mL oral susp magnesium hydroxide 400 mg/5 mL 30 ml PO DAILY PRN Con stipation 02/18/25 02/18/25 oral suspension (Milk of Magnesia) naloxone 2 mg/2 mL syringe kit 2 mg IM Q2M PRN overdos e 02/18/25 02/18/25 polyethylene glycol 3350 17 17 g PO DAILY PRN Constipa tion 02/18/25 02/18/25 gram/dose oral powder Previous Rx's ?Medication ?Instructions ?Recorded Diabetic Shoes with toe filler to #1 ea 08/01/23 right great toe 3 Pairs of Inserts furosemide 40 mg tablet See Rx Instructions .Route 0 09/03/24 .COMPLEX #90 tabs hydralazine 50 mg tablet See Rx Instructions .Route 0 09/03/24 .COMPLEX 90 days #180 tabs levothyroxine 88 mcg tablet See Rx Instructions .Route 09/03/24 .COMPLEX #90 tabs metoprolol tartrate 25 mg tablet 12.5 mg (1/2 x 25 mg) PO BID 90 09/03/24 days #90 tabs potassium chloride 10 mEq See Rx Instructions .Route 0 09/03/24 tablet,extended release .COMPLEX #90 tabs quetiapine 25 mg tablet 25 mg PO DAILY 90 days #90 t abs 09/03/24 rosuvastatin 10 mg tablet See Rx Instructions .Route 0 09/03/24 .COMPLEX 90 days #90 tabs solifenacin 5 mg tablet See Rx Instructions .Route 0 09/03/24 .COMPLEX 90 days #90 tabs Allergies Allergy/AdvReac Type Severity Reaction Status Date / Time amoxicillin Allergy Unknown Unknown Verified 09/03/24 15:04 baclofen Allergy Unknown Unknown Verified 09/03/24 15:04 cortisone Allergy Unknown Unknown Verified 09/03/24 15:04 gabapentin Allergy Unknown Unknown Verified 09/03/24 15:04 shellfish derived Allergy Unknown Unknown Verified 09/03/24 15:04 [id number]-XqD Reductase Allergy Unknown Unknown Verified 09/03/24 15:04 Inhibitor PFSH ED 2 PFSH: Medical History Uncontrolled type 2 diabetes mellitus Advanced dementia 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 and midfoot with fat layer exposed Atrial fibrillation Non-pressure chronic ulcer of other part of right foot with fat layer exposed Back pain, chronic Upper respiratory infection Urinary tract infection Encounter for laboratory test Urinary incontinence Dementia History of VT (myocardial infarction) Essential hypertension Mixed hyperlipidemia Diabetes type 2, controlled Surgical History S/P foot surgery Social History Smoking and tobacco/nicotine status: unknown if used tobacco/nicotine Physical Exam 2 Const: GENERAL APPEARANCE: cooperative ORIENTATION/CONSCIOUSNESS: Yes awake (Responsible stimulation) and Yes confused HENMT: COMMON NORMALS: normocephalic, atraumatic and hearing grossly normal bilaterally HEAD & SCALP: normocephalic and atraumatic Resp: COMMON NORMALS: normal respiratory effort, No retractions, No use of accessory muscles and clear to auscultation bilaterally AUSCULTATION: clear to auscultation bilaterally Cardio: COMMON NORMALS: No murmurs present (Cardio) RATE: tachycardic R HYTHM: abnormal rhythm irregularly irregular GI: COMMON NORMALS: Soft to palpation and No hepatosplenomegaly present A USCULTATION: Yes normoactive bowel sounds PALPATION: Yes Soft to palpation, No Tenderness to palpation present (GI), No Guarding due to palpation present (GI) and Yes No hepatosplenomegaly present Extremity: COMMON NORMALS: normal to inspection, capillary refill normal, no clubbing, cyanosis or edema, no calf tenderness and no pedal edema Skin: COMMON NORMALS: no rashes or lesions noted GENERAL SKIN EXAM: no rashes or lesions noted Course 2 Vital Signs: Vital signs: Vital Signs Temperature 98.1 F 02/21/25 07:44 Pulse Rate 69 02/21/25 07:44 Respiratory Rate 18 02/21/25 07:44 Blood Pressure 103/53 02/21/25 07:44 Pulse Oximetry 96 02/21/25 07:44 Oxygen Delivery Me thod Room Air 02/21/25 07:44 MDM - Arrhythmia/Palpitations Medical Decision Making Patient seen and evaluated difficult evaluation because of her dementia she is not really able to add anything history is from the chart EMS report and information we received when we called detention and talked to her primary care nurse. Patient has hyperglycemia. Evaluate for DKA A-fib congestive heart failure pneumonia secondary infections as well as sepsis cellulitis cystitis. Labs and imaging ordered. Labs imaging EKG interpreted as found in the chart from initial workup A-fib with RVR. Patient given IV fluids and insulin. Started on diltiazem given IV push and drip. Blood sugars are improving ketones positive VBG does not show acidosis however patient is severely hyperglycemic has a metabolic acidosis initially with Anion gap of 30.1 repeat gap 24.7 after fluids is improving. Discussed with hospitalist orders written for admission to ICU. Her A-fib was initially treated with Cardizem then started a Cardizem drip rate is improved holding at 100. She is getting a sepsis bolus in the event and antibiotics for her UTI. Admit to ICU. Medical Records I reviewed the patient's medical records. Lab Data I reviewed the patient's lab results. 02/18/25 02:10 02/18/25 06:32 Radiology Impressions Chest X-Ray 02/17/25 12:06 IMPRESSION: Abnormality in the left lower hemithorax atypical for congestive failure more compatible with pneumonitis and effusion. Foot X-Ray 02/17/25 13:46 IMPRESSION: Erosion of the distal head of the third metatarsal as above above unknown chronicity. Chronic changes in the forefoot as above. Abdomen/Pelvis CT 02/18/25 08:45 IMPRESSION: 1. Cholelithiasis without evidence for acute cholecystitis. 2. Small LEFT pleural effusion with compressive atelectasis. 3. Moderate cardiomegaly. 4. Partially calcified exophytic mass from the upper pole RIGHT kidney measures 2.2 x 2.0 cm. Indeterminate without further evaluation with and without IV contrast. 5. RIGHT renal cyst. 6. Densely calcified aorta and splenic artery. 7. No ascites or adenopathy. Laboratory Results WBC 13.86 10^3/uL (3.29-11.43) H 02/17/25 12:30 RBC 4.79 10^6/uL (3.85-5.65) 02/17/25 12:30 Hgb 14.90 g/dL (11.27-16.99) 02/17/25 12:30 Hct 44.9 % (36-47) 02/17/25 12:30 MCV 93.7 fl (85-98) 02/17/25 12:30 MCH 31.1 pg (27-33) 02/17/25 12:30 MCHC 33.2 g/dL (30-55) 02/17/25 12:30 RDW 13.4 % (12.1-15.1) 02/17/25 12:30 Plt Count 353 10^3/cmm (157-399) 02/17/25 12:30 MPV 9.5 fL (7.4-10.4) 02/17/25 12:30 Neut % (Auto) 88.0 % 02/17/25 12:30 Lymph % (Auto) 4.0 % 02/17/25 12:30 [place] % (Auto) 7.2 % 02/17/25 12:30 Eos % (Auto) 0.0 % 02/17/25 12:30 Baso % (Auto) 0.2 % 02/17/25 12:30 Neut # (Auto) 12.19 10^3/uL (1.8-7.7) H 02/17/25 12:30 Lymph # (Auto) 0.6 10^3/uL (0.8-4.8) L 02/17/25 12:30 [place] # (Auto) 1.0 10^3/uL (0.2-0.9) H 02/17/25 12:30 Eos # (Auto) 0.0 10^3/uL (0.0-0.8) 02/17/25 12:30 Baso # (Auto) 0.0 10^3/uL (0.0-0.1) 02/17/25 12:30 Nucleated RBC % (auto) 0 % 02/17/25 12:30 Nucleated RBCs # 0.0 /100WBC 02/17/25 12:30 Specimen Type Arterial 02/17/25 12:59 Sample Site Radial, left 02/17/25 12:59 ABG pH 7.47 (7.35-7.45) H 02/17/25 12:59 ABG pCO2 35.7 mmHg (35-45) 02/17/25 12:59 ABG pO2 94.8 mmHg (80.0-100.0) 02/17/25 12:59 ABG PO2/FiO2 Ratio 451 02/17/25 12:59 ABG HCO3 26.1 mmol/L (22-26) H 02/17/25 12:59 ABG O2 Saturation 98.2 02/17/25 12:59 ABG Base Excess 2.7 mmol/L (-2.0-2.0) H 02/17/25 12:59 Gurdeep Test Pos 02/17/25 12:59 A-a O2 Gradient 1.3 mmHg (5-10) L 02/17/25 12:59 Hematocrit 46.8 % (37-47) 02/17/25 12:59 Hgb O2 Saturation 96.2 % (95-100) 02/17/25 12:59 Carboxyhemoglobin 1.0 %THgb (0.4-20.1) 02/17/25 12:59 Methemoglobin 1.0 % (0.4-1.5) 02/17/25 12:59 Total Hemoglobin 15.3 g/dL (12-16) 02/17/25 12:59 Sodium 141.0 mmol/L (131-143) 02/17/25 12:59 Potassium 3.4 mmol/L (3.5-5.0) L 02/17/25 12:59 Glucose 758.0 mg/dL (70-115) H 02/17/25 12:59 Ionized Calcium 1.1 mmol/L (1.1-1.4) 02/17/25 12:59 O2 Delivery Device Room air 02/17/25 12:59 FiO2 21.0 % 02/17/25 12:59 Production Engine Repairer ID Cak 02/17/25 12:59 Sodium 139 mmol/L (136-145) 02/17/25 12:30 Potassium 3.6 mmol/L (3.5-5.1) 02/17/25 12:30 Chloride 85 mmol/L (98-107) L 02/17/25 12:30 Carbon Dioxide 26 mmol/L (22-29) 02/17/25 12:30 Anion Gap 31.6 (5-19) H 02/17/25 12:30 BUN 33 mg/dL (8-23) H 02/17/25 12:30 Creatinine 1.6 mg/dL (0.5-0.9) H 02/17/25 12:30 GFR Calculation Not Reportable 02/17/25 12: Glucose 784 mg/dL (65-115) H* 02/17/25 12:30 POC Glucose > 600 mg/dL (70-110) H* 02/17/25 12:07 Estimat Average Glucose 372 02/17/25 12:30 Hemoglobin A1c 14.6 % (4.0-6.0) H 02/17/25 12:30 Calculated Osmolality 333 mOsm/kg (285-295) H 02/17/25 12:30 Lactic Acid 2.5 mmol/L (0.5-2.2) H 02/17/25 12:30 Calcium 9.4 mg/dL (8.5-10.5) 02/17/25 12:30 Total Bilirubin 0.5 mg/dL (0.15-1.2) 02/17/25 12: AST 9 U/L (0-32) 02/17/25 12:30 ALT 6 U/L (0-33) 02/17/25 12:30 Alkaline Phosphatase 58 U/L (35-105) 02/17/25 12:30 Total Protein 7.8 g/dL (6.6-8.7) 02/17/25 12:30 Albumin 3.4 g/dL (3.5-5.2) L 02/17/25 12:30 Globulin 4.4 g/dL (1.3-4.6) 02/17/25 12:30 Vitamin B12 502 pg/mL (232-1245) 02/17/25 12:30 Procalcitonin 0.18 ng/mL (0-0.5) 02/17/25 12:30 TSH 1.47 uIU/mL (0.27-4.20) 02/17/25 12:30 Serum Ketones Positive (Negative) H 02/17/25 12:30 All radiology interpretation(s) finalized by discharge EKG Data EKG 1: EKG interpretation date: 02/17/25 Prior EKG tracings: available for review Interpretation: EKG 1016 2025-04-08 A-fib with rapid ventricular sponsor rate of 127 QTc 521. Right bundle branch block present. No previous EKGs for comparison. No acute ST changes noted. Nonspecific Other EKG comments: Chest X-Ray 02/17/25 12:06 IMPRESSION: Abnormality in the left lower hemithorax atypical for congestive failure more compatible with pneumonitis and effusion. Foot X-Ray 02/17/25 13:46 IMPRESSION: Erosion of the distal head of the third metatarsal as above above unknown chronicity. Chronic changes in the forefoot as above. Abdomen/Pelvis CT 02/18/25 08:45 IMPRESSION: 1. Cholelithiasis without evidence for acute cholecystitis. 2. Small LEFT pleural effusion with compressive atelectasis. 3. Moderate cardiomegaly. 4. Partially calcified exophytic mass from the upper pole RIGHT kidney measures 2.2 x 2.0 cm. Indeterminate without further evaluation with and without IV contrast. 5. RIGHT renal cyst. 6. Densely calcified aorta and splenic artery. 7. No ascites or adenopathy. Critical Care Time 2 Critical Care Time: Critical Care Time: Yes Total Critical Care Time: 40 Attestation: The high probability of a clinically significant, sudden or life threatening deterioration of the patient's cardiovascular endocrine renal system(s) required my full and direct attention, intervention and personal management. The critical care time is as shown. This time is in addition to time spent performing any reported procedures but includes the following: [x] Data and vital sign review and interpretation [x] Patient assessment, examination and intervention [x] Documentation [x] Medication orders and management Discharge Plan Discharge Patient Disposition: Admitted As Inpatient Admit Provider: Miguel Angel Ferris Clinical Impression: Sepsis, Atrial fibrillation with RVR, Advanced dementia, Uncontrolled type 2 diabetes mellitus, DKA (diabetic ketoacidosis) Urinary tract infection Qualifiers: Urinary tract infection type: acute cystitis Hematuria presence: without hematuria Qualified Code(s): N30.00 - Acute cystitis without hematuria Condition: Stable Coding Level of Care Code ED Poker In for Adrian Nobles
[2025-02-17] MEDS: dilTIAZem 5 mg/mL SDV 5 mL 10 MG IVP (12:28)
[2025-02-17 12:39] LABS: Hematocrit 44.9 % (36-47); Hemoglobin 14.90 g/dL (11.27-16.99); Mean Corpuscular HGB Conc 33.2 g/dL (30-55); Mean Corpuscular Hemoglobin 31.1 pg (27-33); Mean Corpuscular Volume 93.7 fl (85-98); Nucleated Red Blood Cells % 0 %; Platelet Count 353 10^3/cmm (157-399); Red Blood Count 4.79 10^6/uL (3.85-5.65); White Blood Count 13.86 10^3/uL (3.29-11.43)
[2025-02-17 12:50] LABS: Ketone (Acetest) Serum Positive (Negative)
[2025-02-17 12:58] LABS: Alanine Aminotransferase 6 U/L (0-33); Albumin Level 3.4 g/dL (3.5-5.2); Alkaline Phosphatase 58 U/L (35-105); Aspartate Amino Transferase 9 U/L (0-32); Blood Urea Nitrogen 33 mg/dL (8-23); Calcium 9.4 mg/dL (8.5-10.5); Carbon Dioxide 26 mmol/L (22-29); Chloride 85 mmol/L (98-107); Creatinine Clr Calc Pharmacy 27.9605; Globulin 4.4 g/dL (1.3-4.6); Sodium 139 mmol/L (136-145); Total Protein 7.8 g/dL (6.6-8.7)
[2025-02-17] MEDS: DILTIAZEM HCL/D5W 125 MG/125 ML BAG IV (13:00)
--- OUTSIDE RECORDS SUMMARY | 2025-02-17 13:02 | XMS_ITS | Patient Health Record ---
Author Organization [facility] Address [address] [place] [address] Care Team Providers Care Telesales Specialist Name Role Phone Pérez Richards Primary Care Provider Unavailramesh e Erwin Rogers Unavailable Reason For Referral No Information Medications Medication SIG (Take, Route, Frequency, Duration) Notes Start Date End Date Status glipiZIDE 5 MG Tablet 1 tablet 30 minute s before breakfast Orally BID Active SEROquel 25 MG Tablet 1 tablet at bedtim e Orally Once a day Active VESIcare 5 MG Tablet 1 tablet Orally Onc e a day Active hydrALAZINE HCl 50 MG Tablet 1 tablet wi th food Orally Twice a day Active Tylenol 325 MG Tablet 1 tablet as needed Orally every 4 hrs Active Furosemide 40 MG Tablet 1 tablet Orally Once a day Active Potassium Chloride ER 10 MEQ Tablet Extended Release 1 tablet with food Orally Twice a day Active Metoprolol Tartrate 25 MG Tablet 1 tablet with food Orally Twice a day Active Levothyroxine Sodium 10 MG Tablet 1 tablet Orally Once a day Active Levothyroxine Sodium 88 MCG Tablet 1 tablet in the morning on an empty stomach Orally Once a day Active Problems Problem Type SNOMED Code ICD Code Onset Dates Problem Status W/U Status Risk Notes Problem Essential hypertension (98028407) Essential hypertension (I10) Active confirmed Plan Of Treatment No Information Insurance Providers Payer Name Payer Address Payer Phone Subscriber Number Group Number Insured Name Patient Relationship to Insured Coverage Start Date Coverage End Date [employer] [place] [address] [place] [phone] [id number] MAHAD STOVALL Self - patient is the insured [place] [address] [address] [place] [address] [id number] MAHAD STOVALL Self - patient is the insured
[2025-02-17 13:04] LABS: Anion Gap 31.6 (5-19); Potassium 3.6 mmol/L (3.5-5.1)
[2025-02-17 13:11] LABS: ABG PCO2 35.7 mmHg (35-45); ABG PH Result 7.47 (7.35-7.45); Alveolar-Arterial Oxygen Gradi 1.3 mmHg (5-10); Arterial Blood Gas Hematocrit 46.8 % (37-47); Blood Gas Allen Test Pos; Blood Gas Operator Identificat CAK; Blood Gas Sample Site Radial, left; Blood Gas Sample Type Arterial; Carboxyhemoglobin 1.0 %THgb (0.4-20.1); Glucose Level-ABG 758.0 mg/dL (70-115); HCO3 ABG 26.1 mmol/L (22-26); Ionized Calcium Level - ABG 1.1 mmol/L (1.1-1.4); Methemoglobin 1.0 % (0.4-1.5); Oxygen Saturation ABG 98.2; PO2 ABG 94.8 mmHg (80.0-100.0); PO2 FiO2 Ratio Arterial Blood 451; Potassium Level - ABG 3.4 mmol/L (3.5-5.0); Sodium Level - ABG 141.0 mmol/L (131-143)
[2025-02-17 13:18] LABS: Osmolality Calculated 333 mOsm/kg (285-295)
[2025-02-17 13:21] LABS: Glucose 784 mg/dL (65-115)
--- NOTE | 2025-02-17 13:39 | USCV_ITS ---
Tanya Goss Age: 84 Gender: F : 1940 Exam Date: 02/17/2025 16:30 Ordering Phys: Miguel Angel Ferris MD Technologist: TINA [place] [facility] [place] w/RVR BP: 151 / 72 HR: 80 Rhythm: Sinus Technical Quality: Adequate MEASUREMENTS (Male / Female) Normal Values 2D ECHO LV Diastolic Diameter PLAX 5.3 cm 4.2 - 5.9 / 3.9 - 5.3 cm IVS Diastolic Thickness 1.3 cm 0.6 - 1.0 / 0.6 - 0.9 cm IVS Systolic Thickness 1.8 cm LVPW Diastolic Thickness 1.0 cm 0.6 - 1.0 / 0.6 - 0.9 cm LVPW Systolic Thickness 1.4 cm LVOT Diameter 2.0 cm LV Ejection Fraction 2D Teich 54.5 % LV Ejection Fraction MOD 4C 33.5 % LV Ejection Fraction MOD 2C 31.7 % LV Ejection Fraction 2C AL 30.3 % LA Diameter 3.3 cm RA Systolic Volume 4C AL 30.0 ml RA Systolic Volume 4C MOD 28.5 ml LA Sys Volume AL 65.4 cm cubed LA Sys Volume Index AL 35.3 cm cubed/m squared Aorta at Sinotubular Diameter 2.5 cm M-MODE LA Ao Ratio MM 1.2 AV Cusp Separation MM 1.1 cm DOPPLER AV Peak Velocity 159.0 cm/s LVOT Peak Velocity 75.0 cm/s AV Area Cont Eq vti 1.5 cm squared AV Area Cont Eq pk 1.4 cm squared MV Peak Velocity 127.0 cm/s MV Area PHT 2.9 cm squared Mitral E to A Ratio 2.7 TR Peak Velocity 225.0 cm/s TR Peak Gradient 20.3 mmHg TV Peak E Velocity 76.0 cm/s PV Peak Velocity 81.0 cm/s FINDINGS Left Ventricle LV systolic function is moderate to severely reduced with EF of 30-35%. Moderate to severe global hypokinesis Right Ventricle Moderately hypokinetic RV. Right Atrium Normal in size Left Atrium Dilated IA Septum Grossly normal Mitral Valve Mild mitral annular calcification. Mild mitral regurgitation Aortic Valve Aortic valve is thickened. Mild aortic regurgitation. Tricuspid Valve Mild tricuspid regurgitation. Pulmonary artery systolic pressure is normal Pulmonic Valve Not well visualized Pericardium Normal Aorta Normal in size IVC Not well visualized CONCLUSIONS LV systolic function is moderate to severely reduced with EF of 30-35% Moderately hypokinetic RV. Left atrial dilation Mild mitral regurgitation Mild aortic regurgitation. Mild tricuspid regurgitation. No comparion studies are available. Dylon Ochoa MD (Electronically Signed) Final Date: 18 February 2025 17:00 S
--- NOTE | 2025-02-17 13:42 | P.HP_ITS ---
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 In the ER patient was found to have positive ketones, blood sugar of more than 700 with concerns for DKA and A-fib with RVR. So far she has been given 500 cc of IV fluid bolus, 10 of IV Cardizem. She has been started on Cardizem drip and 1 L IV fluid bolus along with 10 of IV insulin. Examination patient is awake, incoherent, heart rate of 126 bpm with blood pressure of 128 over 60 mmHg saturating more than 94% on room air. As per the conversation from the nursing staff at [place] patient has been feeling weak tired lethargic getting worse over the last 2 days. Decreased oral intake for last 24 hours. Usually patient does not let any kind of blood draws or needle sticks because of extreme phobia of needles but today she let them check her blood sugars and it was found to be more than 600. Review of Systems 2 General: Reports: ROS unobtainable due to mental status Medications/Allergies Home Medications ?Medication ?Instructions ?Recorded ?Confirmed ?Last Taken ?Type aspirin 81 mg tablet,delayed 81 mg PO DAILY 02/05/22 0 09/03/24 09/13/23 History release (Adult Aspirin Regimen) Cinnamon 2,000 mg PO DAILY 07/03/23 0 09/03/24 09/13/23 History Diabetic Shoes with toe filler to #1 ea 08/01/2309/03 Unknown Rx right great toe 3 Pairs of Inserts cranberry extract 650 mg capsule 650 mg PO DAILY 09/1309/03/24 09/13/23 History multivitamin (Daily Multi-Vitamin 1 tab PO DAILY 09/1309/03/24 09/13/23 History tablet) furosemide 40 mg tablet See Rx Instructions .Route 0 09/03/24 09/03/24 Unknown Rx .COMPLEX #90 tabs glipizide 5 mg tablet See Rx Instructions .Route 0 09/03/24 09/03/24 Unknown Rx .COMPLEX 90 days #180 tabs hydralazine 50 mg tablet See Rx Instructions .Route 0 09/03/24 09/03/24 Unknown Rx .COMPLEX 90 days #180 tabs levothyroxine 88 mcg tablet See Rx Instructions .Route 09/03/24 09/03/24 Unknown Rx .COMPLEX #90 tabs metoprolol tartrate 25 mg tablet 12.5 mg (1/2 x 25 mg) PO BID 90 09/03/24 09/03/24 Unknown Rx days #90 tabs potassium chloride 10 mEq See Rx Instructions .Route 0 09/03/24 09/03/24 Unknown Rx tablet,extended release .COMPLEX #90 tabs quetiapine 25 mg tablet 25 mg PO DAILY 90 days #90 t abs 09/03/24 09/03/24 Unknown Rx rosuvastatin 10 mg tablet See Rx Instructions .Route 0 09/03/24 09/03/24 Unknown Rx .COMPLEX 90 days #90 tabs solifenacin 5 mg tablet See Rx Instructions .Route 0 09/03/24 09/03/24 Unknown Rx .COMPLEX 90 days #90 tabs Allergies Allergy/AdvReac Type Severity Reaction Status Date / Time amoxicillin Allergy Unknown Unknown Verified 09/03/24 15:04 baclofen Allergy Unknown Unknown Verified 09/03/24 15:04 cortisone Allergy Unknown Unknown Verified 09/03/24 15:04 gabapentin Allergy Unknown Unknown Verified 09/03/24 15:04 shellfish derived Allergy Unknown Unknown Verified 09/03/24 15:04 Pzeihit-SMX-ZyB Reductase Allergy Unknown Unknown Verified 09/03/24 15:04 Inhibitor PFSH Acute 2 PFSH: Medical History (Updated 02/17/25 @ 13:46 by Miguel Angel Ferris MD) 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 and midfoot with fat layer exposed Atrial fibrillation Non-pressure chronic ulcer of other part of right foot with fat layer exposed Back pain, chronic Upper respiratory infection Urinary tract infection Encounter for laboratory test Urinary incontinence Dementia History of PR (myocardial infarction) Essential hypertension Mixed hyperlipidemia Diabetes type 2, controlled Surgical History (Updated 02/17/25 @ 13:46 by Miguel Angel Ferris MD) S/P foot surgery Social History Smoking and tobacco/nicotine status: unknown if used tobacco/nicotine Vitals/I&O/Wt Last Vital Signs Temp 98.9 F 02/17/25 12:02 Pulse 113 H 02/17/25 13:01 Resp 29 H 02/17/25 13:01 BP 127/89 02/17/25 13:01 Pulse Ox 96 02/17/25 13:01 O2 Del Method Room Air 02/17/25 13:01 02/16/25 02/17/25 02/17/25 22:59 06:59 14:59 Intake Total 502.209 / 502.209 Balance 502.209 / 502.209 Weight last 48 hrs Weight 74.389 kg Physical Exam 2 Narrative: General: No acute distress, AO x 1 to 2, dehydrated, sick appearing HEENT: PERRLA, pupils bilaterally equal and reactive Chest: Normal vesicular breath sounds, no added sounds, equal good air entry bilaterally CVS: S1-S2 irregularly irregular, no murmurs, no tachycardia, no gallops, no rubs Abdomen: Soft, nontender, no organomegaly, bowel sounds present Neuro: No focal deficits, no facial deformity, Data 02/17/25 12:30 02/17/25 12:30 A&P Assessment and plan 1. Diabetic ketoacidosis: Treatment as per DKA protocol. Patient is getting 1 L fluid bolus. After that NS at 125 cc/h. Insulin drip. Monitor BMP every 4 hours. Target potassium around 4. Replace potassium accordingly. If blood sugar drops below 200 and anion gap is still elevated can transition to D5 NS at 125 cc/h. 2. Atrial fibrillation with RVR: History of A-fib. Currently in RVR. Patient takes metoprolol at home. Hold off on Cardizem drip. Will plan for 5 mg of IV metoprolol push followed by 25 mg of oral metoprolol one-time. If patient continues to remain in RVR can start on IV amiodarone drip after 150 mg bolus. Increase home dose of metoprolol to 37.5 mg twice daily. Check echocardiogram. Patient not on anticoagulation. 3. Sepsis: Concern for sepsis given tachycardia, leukocytosis, change in mentation. Patient does have a history of UTI. Currently sepsis under workup. Check urinalysis, blood culture, urine culture, lactate, trend procalcitonin, MRSA swab, respiratory viral panel. Urine culture in the past growing Enterococcus. Start empirically on IV ceftriaxone and vancomycin. 4. Essential hypertension: Goal blood pressure less than 140/90 [place]. Continue home dose of hydralazine. Metoprolol as above. Uptitrate as per goal blood pressure. 5. Peripheral arterial disease: Plan: Continue other chronic medication. DNR/DNI. CODE STATUS on longterm paperwork. Confirmed with nursing staff. NPO Protonix for PUD prophylaxis Heparin for DVT prophylaxis PDMP PDMP Reviewed: Not Reviewed Attestations 2 Medical Necessity Statement*: Admission for more than 2 midnights for management of DKA, possible sepsis with concern for UTI, A-fib with RVR Critical Care Time: The high probability of a clinically significant, sudden or life threatening deterioration of the patient's [cardiac, renal] system(s) required my full and direct attention, intervention and personal management. The critical care time is as shown. This time is in addition to time spent performing any reported procedures but includes the following: [x] Data and vital sign review and interpretation [x] Patient assessment, examination and intervention [x] Documentation [x] Medication orders and management Critical Care Time (min): 70 Coding Level of Care Code Critical Care >/= 30 minutes Critical care time (in minutes): 70 The high probability of a clinically significant, sudden or life threatening deterioration, as referenced in this documentation, required my full and direct attention, intervention and personal management. The critical care time shown is in addition to time spent performing any reported separately billable procedures and includes the following: [x] Data and vital sign review and interpretation [x ] Patient assessment, examination and intervention [x] Medication orders and management [x] Patient/Family updates as able [x] Care Coordination and Documentation. Diagnoses Diabetic ketoacidosis E11.10 Atrial fibrillation with RVR I48.91 Sepsis A41.9 Essential hypertension I10 Peripheral arterial disease I73.9
--- NOTE | 2025-02-17 13:46 | XR_ITS ---
WS: [id number] XR foot RT 2V [id number] REASON FOR EXAM: possible osteo FINDINGS: Significantly decreased bone density. 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 Possible erosion in the lateral distal head of the third metatarsal. Unknown chronicity. No periosteal reaction. The distal end of the first metatarsal is unremarkable. Amputation of the third toe distal to the midportion of the proximal phalange. Fusion of the PIP and DIP joints of the second toe. XR/XR foot RT 2V [id number] IMPRESSION: Erosion of the distal head of the third metatarsal as above above unknown chron icity. Chronic changes in the forefoot as above.
[2025-02-17] MEDS: insulin regular-human 100 units/1 mL 10 UNIT IVP (13:53)
[2025-02-17] MEDS: metoprolol tartrate 1 mg/1 mL SDV 5 mL 5 MG IVP (13:57)
[2025-02-17 14:07] LABS: Lactic Sepsis W/Reflex 2.5 mmol/L (0.5-2.2)
[2025-02-17 14:08] LABS: Procalcitonin 0.18 ng/mL (0-0.5)
--- NOTE | 2025-02-17 14:22 | PC.NURSE ---
arrived from ed
[2025-02-17] MEDS: cefTRIAXone 1,000 mg SDV 1000 MG IVP (14:36)
[2025-02-17] MEDS: levofloxacin-dextrose 5 % 500 MG/100 ML PREMIX 100 MG IV (14:36)
--- NOTE | 2025-02-17 14:50 | PC.NURSE ---
Dr. Ferris advised holding amio drip due to hr in 70s
[2025-02-17 14:56] LABS: Estmated Average Glucose 372; Hemoglobin A1C 14.6 % (4.0-6.0)
[2025-02-17] MEDS: INSULIN REGULAR IN 0.9 % NACL 100 UNIT/100 ML BAG 7 UNIT IV (14:58)
[2025-02-17] MEDS: magnesium sulfate premix 1 GM/100 ML PIGGYBACK IV (15:04)
[2025-02-17] MEDS: heparin 5,000 unit/mL INJ 1 mL 5000 UNIT SUBCUT (15:10)
[2025-02-17 15:12] LABS: Thyroid Stimulating Hormone 1.47 uIU/mL (0.27-4.20); Vitamin B12 502 pg/mL (232-1245)
[2025-02-17] MEDS: lidocaine 1% 5 ML in potassium chloride premix 100 ML 26.25 ML IV (15:15)
[2025-02-17 15:33] LABS: Reflex Lactate Order REFLEX LACTIC ORDERD
[2025-02-17 15:40] LABS: Anion Gap 24.7 (5-19); Blood Urea Nitrogen 32 mg/dL (8-23); Calcium 8.1 mg/dL (8.5-10.5); Carbon Dioxide 26 mmol/L (22-29); Chloride 96 mmol/L (98-107); Creatinine Clr Calc Pharmacy 27.9605; Osmolality Calculated 332 mOsm/kg (285-295); Sodium 144 mmol/L (136-145)
[2025-02-17 15:47] LABS: Glucose 590 mg/dL (65-115); Potassium 2.7 mmol/L (3.5-5.1)
[2025-02-17 15:53] LABS: Magnesium 2.2 mg/dL (1.7-2.3)
[2025-02-17 16:18] LABS: Lactic Acid level (Lactate) 2.5 mmol/L (0.5-2.2)
[2025-02-17 16:32] LABS: Glucose Urine UA 3+ (Normal); Nitrate Urine Negative (Negative); Specific Gravity, Urine 1.024 (1.005-1.030)
[2025-02-17 16:34] LABS: Add Urine Microscopic? YES
[2025-02-17 16:42] LABS: UA Slide Review UA Slide Review Perf
[2025-02-17] MEDS: sodium chlor 0.9% + KCl 40 mEq 40 MEQ/1,000 ML BAG 100 MEQ IV (16:52)
[2025-02-17 18:22] LABS: Coronavirus 229E,HKU1,NL63,OC4 Not Detected (NOT DETECT); Parainfluenza Virus Type 1 Not Detected (NOT DETECT); Parainfluenza Virus Type 2 Not Detected (NOT DETECT); Parainfluenza Virus Type 3 Not Detected (NOT DETECT); Parainfluenza Virus Type 4 Not Detected (NOT DETECT); SARS-COV-2 Not Detected (NOT DETECT)
--- NOTE | 2025-02-17 19:03 | PC.NURSE ---
recieve to from Dr. Ferris for 1/2 ns 40 k at 100 ml/hr once blood glucose less than 250
[2025-02-17 19:40] LABS: Anion Gap 18.5 (5-19); Blood Urea Nitrogen 31 mg/dL (8-23); Calcium 8.9 mg/dL (8.5-10.5); Carbon Dioxide 31 mmol/L (22-29); Chloride 103 mmol/L (98-107); Creatinine Clr Calc Pharmacy 27.7227; Glucose 290 mg/dL (65-115); Osmolality Calculated 325 mOsm/kg (285-295); Potassium 3.5 mmol/L (3.5-5.1); Sodium 149 mmol/L (136-145)
[2025-02-17] MEDS: dextrose 5%-ns 0.45% + KCl 40 1,000 ML 100 MEQ IV (20:04)
[2025-02-17] MEDS: D5-NS 0.45% + KCL 20 mEq 20 MEQ/1,000 ML BAG 100 MEQ IV (20:44)
[2025-02-17 22:54] LABS: Anion Gap 15.9 (5-19); Blood Urea Nitrogen 31 mg/dL (8-23); Calcium 9.1 mg/dL (8.5-10.5); Carbon Dioxide 31 mmol/L (22-29); Chloride 106 mmol/L (98-107); Creatinine Clr Calc Pharmacy 31.6831; Glucose 91 mg/dL (65-115); Osmolality Calculated 314 mOsm/kg (285-295); Potassium 3.9 mmol/L (3.5-5.1); Sodium 149 mmol/L (136-145)
[2025-02-18] VITALS (36 sets, daily range): BP systolic 98–149; BP diastolic 44–107; PULSE 60–96; RESP 10–26; TEMP 36.3–36.5; O2SAT 90–100
[2025-02-18 02:29] LABS: Hematocrit 38.1 % (36-47); Hemoglobin 12.60 g/dL (11.27-16.99); Mean Corpuscular HGB Conc 33.1 g/dL (30-55); Mean Corpuscular Hemoglobin 31.0 pg (27-33); Mean Corpuscular Volume 93.6 fl (85-98); Nucleated Red Blood Cells % 0 %; Platelet Count 301 10^3/cmm (157-399); Red Blood Count 4.07 10^6/uL (3.85-5.65); White Blood Count 12.30 10^3/uL (3.29-11.43)
[2025-02-18] MEDS: insulin glargine 100 units/1 mL 5 UNIT SUBCUT ×2 (02:38→21:40)
[2025-02-18] MEDS: heparin 5,000 unit/mL INJ 1 mL 5000 UNIT SUBCUT ×2 (02:39→15:16)
--- NOTE | 2025-02-18 02:39 | P.EN_ITS ---
Event Note Event Note: Patient admitted as a case of DKA. Current anion gap closed. Glucose level around 100s D5 half NS rate increased to 150 mL/h Target glucose range 150 and less than 200 Bridging started since the patient is insulin na?ve and her oral intake is less therefore glargine 5 units to be given before stopping the insulin infusion and to continue 2 hours. Patient ate pudding and tolerated. Insulin lispro 3 times daily along with meals scheduled to be started from morning. Insulin sliding scale along with meals for correction and later to adjust doses accordingly Monitor blood glucose every hour Patient will benefit from endocrine on board/referral for further continuity of care postdischarge Event Notes Attestations Time Spent in Patient Care: 16 - 35 minutes (>than 50% of time sp ent in counselling and/or direct pt care on unit) .
[2025-02-18 02:42] LABS: Alanine Aminotransferase < 5 U/L (0-33); Albumin Level 2.7 g/dL (3.5-5.2); Alkaline Phosphatase 42 U/L (35-105); Aspartate Amino Transferase 13 U/L (0-32); Blood Urea Nitrogen 24 mg/dL (8-23); Calcium 8.7 mg/dL (8.5-10.5); Carbon Dioxide 29 mmol/L (22-29); Chloride 108 mmol/L (98-107); Creatinine Clr Calc Pharmacy 34.1202; Globulin 3.6 g/dL (1.3-4.6); Glucose 168 mg/dL (65-115); Magnesium 2.5 mg/dL (1.7-2.3); Osmolality Calculated 312 mOsm/kg (285-295); Sodium 147 mmol/L (136-145); Total Protein 6.3 g/dL (6.6-8.7)
[2025-02-18 02:43] LABS: Cholesterol 88 mg/dL (0-200); HDL Cholesterol 39 mg/dL (60-100); Triglycerides 96 mg/dL (0-150)
[2025-02-18 02:47] LABS: Procalcitonin 0.16 ng/mL (0-0.5)
[2025-02-18 02:51] LABS: Anion Gap 14.3 (5-19); Potassium 4.3 mmol/L (3.5-5.1)
--- NOTE | 2025-02-18 06:25 | PC.NURSE ---
Transition from insulin gtt: Pt received 5 units insulin glargine at 0238, insulin gtt and maintenance fluids turned off at 0438.
[2025-02-18 07:09] LABS: Anion Gap 17.1 (5-19); Blood Urea Nitrogen 29 mg/dL (8-23); Calcium 8.4 mg/dL (8.5-10.5); Carbon Dioxide 26 mmol/L (22-29); Chloride 106 mmol/L (98-107); Creatinine Clr Calc Pharmacy 29.5709; Glucose 303 mg/dL (65-115); Osmolality Calculated 317 mOsm/kg (285-295); Potassium 4.1 mmol/L (3.5-5.1); Sodium 145 mmol/L (136-145)
--- NOTE | 2025-02-18 08:45 | CT_ITS ---
WS: [id number] CT ABDOMEN AND PELVIS NONCONTRAST HISTORY: abd pain, stephanie TECHNIQUE: Imaging performed through the abdomen and pelvis. Coronal and sagittal reformats are submitted. All CT scans at [facility] use at least one of these dose optimization techniques: automated exposure control; mA and/or kV adjustment per patient size (includes targeted exams where dose is matched to clinical indication); or iterative reconstruction. DLP: 907.48 mGy.cm COMPARISON: CT pelvis 09/14/2023 Extensive artifact through the abdomen and chest as patient's arms are placed by her side. There is also artifact from bilateral hip arthroplasties. Lower thorax: Moderate cardiomegaly. Small layering LEFT pleural effusion with compressive atelectasis. Liver: Normal size liver. No mass or bile duct dilatation. Gallbladder: Normally distended with numerous stones. No intrahepatic duct dilatation. Several stones in the gallbladder neck. There are calcifications in the rachell hepatis closely associated with the common bile duct but these appear to be related to the proper hepatic artery. Pancreas: Diffuse atrophy. Spleen: Normal. Adrenal glands: Normal. No mass. Right kidney: Normal length kidney. There is an exophytic mass from the posterior upper pole measuring 2.2 x 2.0 cm. Mixed attenuation with calcifications. There is an additional well-circumscribed mass in the lateral RIGHT kidney measuring 5.6 x 4.4 cm which is most likely a cyst. Nonobstructing calcification lower pole RIGHT kidney. RIGHT ureter is not dilated. Left kidney: Normal size kidney. Nonobstructing 2 mm calcification lower pole. Aorta: Moderate to severe atherosclerosis abdominal aorta. No aneurysm. Atherosclerosis continues into the common iliac arteries. Dense calcification in the splenic artery. Splenic artery is very tortuous. No free fluid, intraperitoneal air or significant lymphadenopathy. GI tract: Normal noncontrast imaging of the stomach, small bowel and colon. No obstruction or wall thickening. Normal appendix. Abdominal wall: Negative. No hernia. Pelvis: Extensive calcifications throughout the iliac arteries. No mass in the pelvis. Uterus is not identified. Conley catheter present in the urinary bladder. Osseous structures: Bilateral hip arthroplasties. Osteopenia. CT/CT abdomen pelvis wo con [id number] IMPRESSION: 1. Cholelithiasis without evidence for acute cholecystitis. 2. Small LEFT pleural effusion with compressive atelectasis. 3. Moderate cardiomegaly. 4. Partially calcified exophytic mass from the upper pole RIGHT kidney measure s 2.2 x 2.0 cm. Indeterminate without further evaluation with and without IV co ntrast. 5. RIGHT renal cyst. 6. Densely calcified aorta and splenic artery. 7. No ascites or adenopathy.
[2025-02-18] MEDS: cefTRIAXone 1,000 mg SDV 1000 MG IVP (12:19)
--- NOTE | 2025-02-18 13:50 | PC.SOCIAL ---
IMM Updated Updated pt's daughter on IMM. No questions voiced. Provided pt a copy. Initialed, dated, & timed a copy & placed in chart.
--- NOTE | 2025-02-18 15:11 | P.PN_ITS ---
Subjective 2 Subjective: No acute events overnight. Patient seen with daughter at bedside. As per daughter she is back to her baseline mentation at AO x 1. Patient denies any nausea, vomiting. Has remained hemodynamically stable and afebrile. Vitals/I&O/Wt Last Vital Signs Temp 97.5 F L 02/18/25 04:00 Pulse 67 02/18/25 13:00 Resp 16 02/18/25 13:00 BP 114/64 02/18/25 13:00 Pulse Ox 99 02/18/25 13:00 O2 Del Method Room Air 02/18/25 05:00 02/18/25 02/18/25 02/18/25 06:59 14:59 22:59 Intake Total 1073.317 / 2199.718 Output Total 500 / 1000 Balance 573.317 / 1199.718 Weight last 48 hrs Weight 73 kg Weight 73 kg Weight 73 kg Weight 74.389 kg Physical Exam 2 Narrative: General: No acute distress, AO x 1 to 2, dehydrated, sick appearing HEENT: PERRLA, pupils bilaterally equal and reactive Chest: Normal vesicular breath sounds, no added sounds, equal good air entry bilaterally CVS: S1-S2 irregularly irregular, no murmurs, no tachycardia, no gallops, no rubs Abdomen: Soft, nontender, no organomegaly, bowel sounds present Neuro: No focal deficits, no facial deformity, Urinary Catheter Management: Conley: Cath Placed During This Visit: yes Reason for Continuing Indwelling Catheter: Accurate Measurement of Urinary Output in Critically Ill Patients Urinary Catheter Date of Insertion: 02/17/25 Urinary Catheter Time of Insertion: 16:47 Data 02/18/25 02:10 02/18/25 06:32 Micro: Microbiology 02/17/25 14:12 Blood Culture - Preliminary Blood NEGATIVE TO DATE 02/17/25 12:30 Blood Culture - Preliminary Blood NEGATIVE TO DATE A&P Assessment and plan 1. Diabetic ketoacidosis: DKA resolved. Patient has uncontrolled type 2 diabetes mellitus. A1c found to be more than 14. 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 She is agreeable to be on insulin now. Did discuss that she can possibly have Dexcom and insulin pump as an outpatient if she follows up with endocrinology. She is agreeable. For now continue with Lantus 5 units nightly, insulin sliding scale at moderate dose protocol. Will uptitrate Lantus depending on insulin requirement in next 24 hours. Continue with half NS at 75 cc/h. For now start on clear liquid diet. Will advance diet as per speech evaluation. Carb consistent diet. 2. Atrial fibrillation with RVR: History of A-fib. Rate controlled. Continue with metoprolol 37.5 mg twice daily. Echocardiogram done. Results awaited. Patient not on anticoagulation given worry about fall due to dementia. Daughter agreeable to hold off on anticoagulation. 3. Sepsis: Concern for sepsis given tachycardia, leukocytosis, change in mentation. Patient does have a history of UTI. UA concerning for UTI. Respiratory viral panel negative. Follow-up culture results. For now continue with empiric IV ceftriaxone and vancomycin given history of UTI due to Enterococcus in the past. Will de-escalate as per culture sensitivities. 4. Essential hypertension: Goal blood pressure less than 140/90 millimeters Hg. Continue with current dose of metoprolol. Will add or uptitrate depending on blood pressure goal. Patient does take hydralazine as well at home. 5. Peripheral arterial disease: 6. Advanced dementia: 7. Uncontrolled type 2 diabetes mellitus: Plan: Continue other chronic medication. DNR/DNI. CODE STATUS on retirement paperwork. Confirmed with nursing staff. Advance diet as per speech evaluation. Carb consistent diet Protonix for PUD prophylaxis Heparin for DVT prophylaxis PDMP PDMP Reviewed: Not Reviewed Attestations 2 Medical Necessity Statement*: Requires further hospitalization for management of uncontrolled type 2 diabetes mellitus, resolving DKA, JENNIFER on CKD, UTI Diagnoses Diabetic ketoacidosis E11.10 Atrial fibrillation with RVR I48.91 Sepsis A41.9 Essential hypertension I10 Peripheral arterial disease I73.9 Advanced dementia F03.C0 Uncontrolled type 2 diabetes mellitus
--- NOTE | 2025-02-18 18:31 | PHA.VACGOAL ---
Vancomycin Goal - Goal Vancomycin Goal:: 15-20 mg/L Vancomycin Indication:: Other (SEPSIS) - Therapy Current therapy:: Other Antibiotic (CEFTRIAXONE) Day of therpy:: Day []of [] . Actual body weight (kg): 160 lb 14.999 oz - Data Labs: WBC 12.30 10^3/uL (3.29-11.43) H 02/18/25 02:10 RBC 4.07 10^6/uL (3.85-5.65) 02/18/25 02:10 Hgb 12.60 g/dL (11.27-16.99) 02/18/25 02:10 Hct 38.1 % (36-47) 02/18/25 02:10 MCV 93.6 fl (85-98) 02/18/25 02:10 MCH 31.0 pg (27-33) 02/18/25 02:10 MCHC 33.1 g/dL (30-55) 02/18/25 02:10 RDW 13.5 % (12.1-15.1) 02/18/25 02:10 Sodium 145 mmol/L (136-145) 02/18/25 06:32 Potassium 4.1 mmol/L (3.5-5.1) 02/18/25 06:32 Chloride 106 mmol/L (98-107) 02/18/25 06:32 Carbon Dioxide 26 mmol/L (22-29) 02/18/25 06:32 Anion Gap 17.1 (5-19) 02/18/25 06:32 BUN 29 mg/dL (8-23) H 02/18/25 06:32 Creatinine 1.5 mg/dL (0.5-0.9) H 02/18/25 06:32 GFR Calculation Not Reportable 02/18/25 06:32 Last dialysis session:: N/A Treatment plan:: new consult Regimen:: Laboratory Tests 02/18/25 02/18/25 02/18/25 02:10 06:32 15:10 WBC 12.30 H Creatinine 1.5 H Vancomycin Trough 12.2 LOADING DOSE OF 1500 MG X 1 GIVEN ON 02/17. PLAN TO GIVE ANOTHER DOSE TODAY OF 500 MG X 1. Follow up:: PLAN TO PULSE DOSE DUE TO RENAL FUNCTION. PLAN TO GET A LEVEL WITH AM LABS.
[2025-02-18] MEDS: vancomycin 500 MG in sodium chloride 0.9% (plus) 100 ML 200 MG IV (19:14)
[2025-02-19] VITALS: BP 129/74; PULSE 73; RESP 16; TEMP 36.9; O2SAT 97
[2025-02-19] MEDS: heparin 5,000 unit/mL INJ 1 mL 5000 UNIT SUBCUT ×2 (03:32→15:11)
[2025-02-19 06:00] VITALS: BP 130/77; PULSE 77; RESP 16; TEMP 36.6; O2SAT 96
[2025-02-19 07:26] VITALS: BP 127/72; PULSE 55; TEMP 36.8; O2SAT 96
[2025-02-19 11:25] VITALS: BP 119/62; PULSE 65; RESP 17; TEMP 36.9; O2SAT 97
--- NOTE | 2025-02-19 14:03 | P.PN_ITS ---
Subjective 2 Subjective: Patient with severe dementia unable to interact Vitals/I&O/Wt Last Vital Signs Temp 98.5 F 02/19/25 11:25 Pulse 65 02/19/25 11:25 Resp 17 02/19/25 11:25 BP 119/62 02/19/25 11:25 Pulse Ox 97 02/19/25 11:25 O2 Del Method Room Air 02/19/25 11:25 02/18/25 02/19/25 02/19/25 22:59 06:59 14:59 Intake Total 393.333 / 393.333 240 / 633.333 60 / 60 Output Total 450 / 450 Balance -56.667 / -56.667 240 / 183.333 60 / 60 Weight last 48 hrs Weight 72.575 kg Weight 73 kg Weight 73 kg Weight 73 kg Physical Exam 2 Narrative: Barely awakens nonverbal with me. Heart regular normal S1-S2 without murmurs clicks gallops or rubs Lungs clear to auscultation without wheezes rales or rhonchi Abdomen flat soft nontender nondistended positive bowel sounds Extremities mild pitting edema left slightly worse than right Urinary Catheter Management: Conley: Cath Placed During This Visit: yes Reason for Continuing Indwelling Catheter: Other Urinary Catheter Date of Insertion: 02/17/25 Urinary Catheter Time of Insertion: 16:47 Data 02/18/25 02:10 02/18/25 06:32 Micro: Microbiology 02/17/25 16:13 Urine Culture - Preliminary Urine,Clean Catch Yeast species 02/17/25 14:12 Blood Culture - Preliminary Blood NEGATIVE TO DATE 02/17/25 12:30 Blood Culture - Preliminary Blood NEGATIVE TO DATE A&P Assessment and plan 1. Diabetic ketoacidosis: DKA resolved. Patient has uncontrolled type 2 diabetes mellitus. A1c found to be more than 14. 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 She is agreeable to be on insulin now. The previous physician discussed that she can possibly have Dexcom and insulin pump as an outpatient if she follows up with endocrinology. She is agreeable. However I would not think of insulin pump is appropriate in a demented patient. The Dexcom could be helpful. The other recommendation would be just Lantus and allow permissive hyperglycemia. Just to avoid DKA in the future Increase to standard starting dose of Lantus 10 units nightly. Currently patient is tolerating insulin per sliding scale with the nurse distracting the patient. However for patient comfort will discuss with daughter about proposed compromise. For now start on clear liquid diet. Will advance diet as per speech evaluation. Carb consistent diet. POC glucose range 150-270 yesterday morning. 2. Atrial fibrillation with RVR: History of A-fib. Rate controlled. Continue with metoprolol 37.5 mg twice daily. Echocardiogram done. LV systolic function is moderate to severely reduced with EF of 30-35% Moderately hypokinetic RV. Left atrial dilation Mild mitral regurgitation Mild aortic regurgitation. Mild tricuspid regurgitation. No comparion studies are available. Patient not on anticoagulation given worry about fall due to dementia. Daughter agreeable to hold off on anticoagulation. 3. Sepsis: Concern for sepsis given tachycardia, leukocytosis, change in mentation. Patient does have a history of UTI. UA concerning for UTI. Respiratory viral panel negative. Urine is growing yeast species. Will stop antibiotics and start Diflucan. 4. Essential hypertension: Continue with current dose of metoprolol. Will add or uptitrate depending on blood pressure goal. Patient does take hydralazine as well at home. 5. Peripheral arterial disease: 6. Advanced dementia: 7. Uncontrolled type 2 diabetes mellitus: Plan: Continue other chronic medication. DNR/DNI. CODE STATUS on senior living paperwork. Confirmed with nursing staff. Advance diet as per speech evaluation. Carb consistent diet Protonix for PUD prophylaxis Heparin for DVT prophylaxis PDMP PDMP Reviewed: Not Reviewed Attestations 2 Medical Necessity Statement*: Patient requires continued hospitalization for DKA/type 2 diabetes management as well as urinary tract infection with yeast. Coding Level of Care Code Acute Code for Chg Fwd Diagnoses Diabetic ketoacidosis E11.10 Atrial fibrillation with RVR I48.91 Sepsis A41.9 Essential hypertension I10 Peripheral arterial disease I73.9 Advanced dementia F03.C0 Uncontrolled type 2 diabetes mellitus
--- NOTE | 2025-02-19 15:24 | PC.SLP ---
Therapist into room to provide treatment. Patient asleep and awoken with knock and name called. Patient asked for shades to be drawn and light turned off. refused therapy.
[2025-02-19 16:00] VITALS: BP 104/64; PULSE 67; RESP 16; TEMP 37.3; O2SAT 95
[2025-02-19 22:00] VITALS: BP 113/73; PULSE 69; RESP 15; TEMP 37.5; O2SAT 93
[2025-02-19] MEDS: insulin glargine 100 units/1 mL 10 UNIT SUBCUT (22:12)
[2025-02-20] VITALS: BP 110/62; PULSE 74; RESP 17; TEMP 37.2; O2SAT 96
[2025-02-20] MEDS: heparin 5,000 unit/mL INJ 1 mL 5000 UNIT SUBCUT (03:15)
[2025-02-20 05:19] VITALS: BP 130/68; PULSE 79; RESP 16; TEMP 37; O2SAT 94
[2025-02-20 07:34] VITALS: BP 105/61; PULSE 60; RESP 16; TEMP 36.3; O2SAT 95
--- NOTE | 2025-02-20 09:58 | P.PN_ITS ---
Subjective 2 Subjective: sleeping. Vitals/I&O/Wt Last Vital Signs Temp 97.4 F L 02/20/25 07:34 Pulse 60 02/20/25 07:34 Resp 16 02/20/25 07:34 BP 105/61 02/20/25 07:34 Pulse Ox 95 02/20/25 07:34 O2 Del Method Room Air 02/20/25 07:34 02/19/25 02/20/25 02/20/25 22:59 06:59 14:59 Intake Total 360 / 420 240 / 660 120 / 120 Output Total 250 / 250 300 / 550 Balance 110 / 170 -60 / 110 120 / 120 Weight last 48 hrs Weight 72.575 kg Weight 72.575 kg Physical Exam 2 Narrative: Barely awakens Heart regular normal S1-S2 without murmurs clicks gallops or rubs Lungs clear to auscultation without wheezes rales or rhonchi Abdomen flat soft nontender nondistended positive bowel sounds Extremities mild pitting edema left slightly worse than right Urinary Catheter Management: Conley: Cath Placed During This Visit: yes Reason for Continuing Indwelling Catheter: Other Urinary Catheter Date of Insertion: 02/17/25 Urinary Catheter Time of Insertion: 16:47 Data 02/18/25 02:10 02/18/25 06:32 Micro: Microbiology 02/17/25 16:13 Urine Culture - Preliminary Urine,Clean Catch Yeast species A&P Assessment and plan 1. Diabetic ketoacidosis: DKA resolved. Patient has uncontrolled type 2 diabetes mellitus. A1c found to be more than 14. 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 She/daughter are agreeable to be on insulin now. The previous physician discussed that she can possibly have Dexcom and insulin pump as an outpatient if she follows up with endocrinology. She is agreeable. However I would not think of insulin pump is appropriate in a demented patient. The Dexcom could be helpful. Today I spoke with the daughter regarding allowing permissive hyperglycemia with just using Lantus. I think again it is reasonable for a Dexcom but I would not offer short acting insulin to this lady who gets very upset and anxious with needles. The daughter is in agreement to if you will partially treat the type 2 diabetes mellitus chart with the aim of keeping blood sugars below 200. Providing Lantus should avoid DKA in the future. The nursing staff at the hospital has been able to use distraction techniques successfully to administer the Lantus. Blood sugars improved on Lantus 10 units nightly. 2. Atrial fibrillation with RVR: History of A-fib. Rate controlled. Continue with metoprolol 37.5 mg twice daily. Echocardiogram done. LV systolic function is moderate to severely reduced with EF of 30-35% Moderately hypokinetic RV. Left atrial dilation Mild mitral regurgitation Mild aortic regurgitation. Mild tricuspid regurgitation. No comparion studies are available. Patient not on anticoagulation given worry about fall due to dementia. Daughter agreeable to hold off on anticoagulation. 3. Sepsis: Sepsis ruled out The etiology of the abnormalities were due to DKA. 4. Essential hypertension: Continue with current dose of metoprolol. Will add or uptitrate depending on blood pressure goal. Patient does take hydralazine as well at home. 5. Peripheral arterial disease: 6. Advanced dementia: 7. Uncontrolled type 2 diabetes mellitus: 8. Urinary tract infection: Due to yeast. Diflucan started yesterday Plan: DNR/DNI. CODE STATUS on custodial paperwork. Confirmed with nursing staff. Advance diet as per speech evaluation. Carb consistent diet Protonix for PUD prophylaxis Heparin for DVT prophylaxis PDMP PDMP Reviewed: Not Reviewed Attestations 2 Medical Necessity Statement*: assisted unable to provide Lantus until Friday. Patient to stay in the hospital until able to obtain Coding Level of Care Code Acute Code for Chg Fwd Diagnoses Diabetic ketoacidosis E11.10 Atrial fibrillation with RVR I48.91 Sepsis A41.9 Essential hypertension I10 Peripheral arterial disease I73.9 Advanced dementia F03.C0 Uncontrolled type 2 diabetes mellitus Urinary tract infection N39.0
[2025-02-20 11:29] VITALS: BP 137/78; PULSE 65; RESP 18; TEMP 36.7; O2SAT 96
[2025-02-20 15:27] VITALS: BP 137/76; PULSE 87; RESP 18; TEMP 36.5; O2SAT 97
[2025-02-20 20:00] VITALS: BP 104/57; PULSE 82; RESP 16; TEMP 36.7; O2SAT 96
[2025-02-20] MEDS: insulin glargine 100 units/1 mL 10 UNIT SUBCUT (21:20)
[2025-02-21] VITALS: BP 111/71; PULSE 74; TEMP 36.7; O2SAT 94
[2025-02-21 04:57] VITALS: BP 108/69; PULSE 87; TEMP 36.9; O2SAT 91
[2025-02-21 05:23] VITALS: BP 115/61
[2025-02-21 07:44] VITALS: BP 103/53; PULSE 69; RESP 18; TEMP 36.7; O2SAT 96
--- NOTE | 2025-02-21 09:47 | PC.NURSE ---
Night nurse stated in report dressing were changed early am
--- NOTE | 2025-02-21 10:57 | PC.SOCIAL ---
IMM Updated Updated pt's daughter on IMM. No questions voiced. Provided pt a copy. Initialed, dated, & timed copy in chart.
[2025-02-21 11:50] VITALS: BP 104/49; PULSE 82; RESP 18; TEMP 36.4; O2SAT 96
--- NOTE | 2025-02-21 13:26 | PM.DCS ---
Discharge Providers Date of Admission: 02/17/25 14:07 Date of Discharge: February 21, 2025 Attending Provider at Admission: Miguel Angel Ferris MD Attending Provider at Discharge: Rell Humphrey MD Primary Care Provider: SONNY Christensen Diagnoses at Discharge Discharge Diagnosis 1. Diabetic ketoacidosis: Details from hospital stay: Resolved but needs to start insulin at 10 units daily 2. Atrial fibrillation with RVR: Details from hospital stay: Rate controlled no anticoagulation due to risk of falls 3. Essential hypertension: Details from hospital stay: Stable 4. Peripheral arterial disease: Details from hospital stay: Stable 5. Advanced dementia: Details from hospital stay: Stable 6. Uncontrolled type 2 diabetes mellitus: Details from hospital stay: continue with Lantus 10 units daily A1c was 14.6. Patient very afraid of needles and will only allow 1 shot a day 7. 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 In the ER patient was found to have positive ketones, blood sugar of more than 700 with concerns for DKA and A-fib with RVR. So far she has been given 500 cc of IV fluid bolus, 10 of IV Cardizem. She has been started on Cardizem drip and 1 L IV fluid bolus along with 10 of IV insulin. Examination patient is awake, incoherent, heart rate of 126 bpm with blood pressure of 128 over 60 mmHg saturating more than 94% on room air. As per the conversation from the nursing staff at [facility] patient has been feeling weak tired lethargic getting worse over the last 2 days. Decreased oral intake for last 24 hours. Usually patient does not let any kind of blood draws or needle sticks because of extreme phobia of needles but today she let them check her blood sugars and it was found to be more than 600. Hospital Course Hospital Course 84-year-old female with dementia lives at [facility] but came in with elevated blood sugar not taking insulin she had been refusing blood sugar checks and insulin. Here if she was convinced with the help of Dr. Brush and daughter to use insulin Lantus 10 units daily. Blood sugar has been running 138-260 but that is an improvement from A1c 14 and not using insulin at all. Patient is on a pur?ed diet and pleasantly demented. Physical Exam Narrative: General Well-developed female in no acute cardiopulmonary stress she is eating pur?ed food. Patient tells me she is 57 years old and told me her birthdate was 06/03/1980 she did seem to correct at 1941 on her birthdate okay. She did not know today's year month or date. [facility]. CV irregular rhythm controlled rate lungs clear to auscultation bilaterally with incoordinated exam abdomen positive bowel tones soft obese nontender Calves no tenderness cords pretibial edema Urinary Catheter Management: Conley: Cath Placed During This Visit: yes Reason for Continuing Indwelling Catheter: Other Urinary Catheter Date of Insertion: 02/17/25 Urinary Catheter Time of Insertion: 16:47 Discharge Data Studies Completed and Pending Completed Studies During Hospitalization Category Date Time Status CT abdomen pelvis wo con [id number] Routine Cat Scan 02/18/25 08:45 Completed XR chest 1V portable [id number] Stat Exams 02/17/25 12:06 Completed XR foot RT 2V [id number] Stat Exams 02/17/25 13:46 Completed CV. echo complete* [id number] Stat Ultrasound 02/17/25 13:39 Completed Pending at discharge Category Date Time Status Blood Culture Stat Lab 02/17/25 14:12 Results Radiology Impressions Chest X-Ray 02/17/25 12:06 IMPRESSION: Abnormality in the left lower hemithorax atypical for congestive failure more compatible with pneumonitis and effusion. Foot X-Ray 02/17/25 13:46 IMPRESSION: Erosion of the distal head of the third metatarsal as above above unknown chronicity. Chronic changes in the forefoot as above. Abdomen/Pelvis CT 02/18/25 08:45 IMPRESSION: 1. Cholelithiasis without evidence for acute cholecystitis. 2. Small LEFT pleural effusion with compressive atelectasis. 3. Moderate cardiomegaly. 4. Partially calcified exophytic mass from the upper pole RIGHT kidney measures 2.2 x 2.0 cm. Indeterminate without further evaluation with and without IV contrast. 5. RIGHT renal cyst. 6. Densely calcified aorta and splenic artery. 7. No ascites or adenopathy. Laboratory Results WBC 12.30 10^3/uL (3.29-11.43) H 02/18/25 02:10 RBC 4.07 10^6/uL (3.85-5.65) 02/18/25 02:10 Hgb 12.60 g/dL (11.27-16.99) 02/18/25 02:10 Hct 38.1 % (36-47) 02/18/25 02:10 MCV 93.6 fl (85-98) 02/18/25 02:10 MCH 31.0 pg (27-33) 02/18/25 02:10 MCHC 33.1 g/dL (30-55) 02/18/25 02:10 RDW 13.5 % (12.1-15.1) 02/18/25 02:10 Plt Count 301 10^3/cmm (157-399) 02/18/25 02:10 MPV 9.3 fL (7.4-10.4) 02/18/25 02:10 Neut % (Auto) 77.9 % 02/18/25 02:10 Lymph % (Auto) 11.1 % 02/18/25 02:10 [place] % (Auto) 8.9 % 02/18/25 02:10 Eos % (Auto) 0.7 % 02/18/25 02:10 Baso % (Auto) 0.6 % 02/18/25 02:10 Neut # (Auto) 9.59 10^3/uL (1.8-7.7) H 02/18/25 02:10 Lymph # (Auto) 1.4 10^3/uL (0.8-4.8) 02/18/25 02:10 [place] # (Auto) 1.1 10^3/uL (0.2-0.9) H 02/18/25 02:10 Eos # (Auto) 0.1 10^3/uL (0.0-0.8) 02/18/25 02:10 Baso # (Auto) 0.1 10^3/uL (0.0-0.1) 02/18/25 02:10 Nucleated RBC % (auto) 0 % 02/18/25 02:10 Nucleated RBCs # 0.0 /100WBC 02/18/25 02:10 Specimen Type Arterial 02/17/25 12:59 Sample Site Radial, left 02/17/25 12:59 ABG pH 7.47 (7.35-7.45) H 02/17/25 12:59 ABG pCO2 35.7 mmHg (35-45) 02/17/25 12:59 ABG pO2 94.8 mmHg (80.0-100.0) 02/17/25 12:59 ABG PO2/FiO2 Ratio 451 02/17/25 12:59 ABG HCO3 26.1 mmol/L (22-26) H 02/17/25 12:59 ABG O2 Saturation 98.2 02/17/25 12:59 ABG Base Excess 2.7 mmol/L (-2.0-2.0) H 02/17/25 12:59 Gurdeep Test Pos 02/17/25 12:59 A-a O2 Gradient 1.3 mmHg (5-10) L 02/17/25 12:59 Hematocrit 46.8 % (37-47) 02/17/25 12:59 Hgb O2 Saturation 96.2 % (95-100) 02/17/25 12:59 Carboxyhemoglobin 1.0 %THgb (0.4-20.1) 02/17/25 12:59 Methemoglobin 1.0 % (0.4-1.5) 02/17/25 12:59 Total Hemoglobin 15.3 g/dL (12-16) 02/17/25 12:59 Sodium 141.0 mmol/L (131-143) 02/17/25 12:59 Potassium 3.4 mmol/L (3.5-5.0) L 02/17/25 12:59 Glucose 758.0 mg/dL (70-115) H 02/17/25 12:59 Ionized Calcium 1.1 mmol/L (1.1-1.4) 02/17/25 12:59 O2 Delivery Device Room air 02/17/25 12:59 FiO2 21.0 % 02/17/25 12:59 International Marketing Coordinator ID Cak 02/17/25 12:59 Sodium 145 mmol/L (136-145) 02/18/25 06:32 Potassium 4.1 mmol/L (3.5-5.1) 02/18/25 06:32 Chloride 106 mmol/L (98-107) 02/18/25 06:32 Carbon Dioxide 26 mmol/L (22-29) 02/18/25 06:32 Anion Gap 17.1 (5-19) 02/18/25 06:32 BUN 29 mg/dL (8-23) H 02/18/25 06:32 Creatinine 1.5 mg/dL (0.5-0.9) H 02/18/25 06:32 GFR Calculation Not Reportable 02/18/25 06:32 Glucose 303 mg/dL (65-115) H 02/18/25 06:32 POC Glucose 206 mg/dL (70-110) H 02/21/25 11:08 Estimat Average Glucose 372 02/17/25 12:30 Hemoglobin A1c 14.6 % (4.0-6.0) H 02/17/25 12:30 Calculated Osmolality 317 mOsm/kg (285-295) H 02/18/25 06:32 Lactic Acid 2.5 mmol/L (0.5-2.2) H 02/17/25 12:30 Lactic Acid (Sepsis) 2.5 mmol/L (0.5-2.2) H 02/17/25 15:41 Calcium 8.4 mg/dL (8.5-10.5) L 02/18/25 06:32 Phosphorus 1.6 mg/dL (2.5-4.5) L 02/18/25 02:10 Magnesium 2.5 mg/dL (1.7-2.3) H 02/18/25 02:10 Total Bilirubin 0.4 mg/dL (0.15-1.2) 02/18/25 02:10 AST 13 U/L (0-32) 02/18/25 02:10 ALT < 5 U/L (0-33) 02/18/25 02:10 Alkaline Phosphatase 42 U/L (35-105) 02/18/25 02:10 Total Protein 6.3 g/dL (6.6-8.7) L 02/18/25 02:10 Albumin 2.7 g/dL (3.5-5.2) L 02/18/25 02:10 Globulin 3.6 g/dL (1.3-4.6) 02/18/25 02:10 Triglycerides 96 mg/dL (0-150) 02/18/25 02:10 Cholesterol 88 mg/dL (0-200) 02/18/25 02:10 LDL Cholesterol, Calc 30 mg/dL (50-129) L 02/18/25 02:10 HDL Cholesterol 39 mg/dL (60-100) L 02/18/25 02:10 LDL/HDL Ratio 0.77 RATIO (0.00-3.22) 02/18/25 02:10 Cholesterol/HDL Ratio 2.26 mg/dL (0.0-4.40) 02/18/25 02:10 Vitamin B12 502 pg/mL (232-1245) 02/17/25 12:30 Folate 5.6 ng/mL (4.8-37.3) 02/18/25 02:10 Procalcitonin 0.16 ng/mL (0-0.5) 02/18/25 02:10 TSH 1.47 uIU/mL (0.27-4.20) 02/17/25 12:30 Urine Color Yellow (Yellow) 02/17/25 16:13 Urine Appearance Turbid (CLEAR) A 02/17/25 16:13 Urine pH 5.0 (5-7) 02/17/25 16:13 Ur Specific [place] 1.024 (1.005-1.030) 02/17/25 16:13 Urine Protein 1+ (Negative) A 02/17/25 16:13 Urine Glucose (UA) 3+ (Normal) H 02/17/25 16:13 Urine Ketones 1+ (Negative) H 02/17/25 16:13 Urine Blood 2+ (Negative) A 02/17/25 16:13 Urine Nitrate Negative (Negative) 02/17/25 16:13 Urine Bilirubin Negative (Negative) 02/17/25 16:13 Urine Urobilinogen 0.2 mg/dL (Negative) 02/17/25 16:13 Ur Leukocyte Esterase 2+ (Negative) A 02/17/25 16:13 Urine RBC >100 /hpf (0-2) H 02/17/25 16:13 Urine WBC >100 /hpf (0-5) H 02/17/25 16:13 Ur Squamous Epith Cells 6-10 /hpf (0-5) 02/17/25 16:13 Amorphous Sediment Not Reportable 02/17/25 16:13 Urine Bacteria 4+ /hpf (NONE) H 02/17/25 16:13 Hyaline Casts 116.81 /lpf 02/17/25 16:13 Urine Yeast 1+ /hpf H 02/17/25 16:13 Vancomycin Trough 12.2 ug/mL (10-15) 02/18/25 15:10 Serum Ketones Positive (Negative) H 02/17/25 12:30 Adenovirus (PCR) Not detected (NOT DETECT) 02/17/25 16:13 C. pneumoniae DNA (PCR) Not detected (NOT DETECT) 02/17/25 16:13 Coronavirus 229E (PCR) Not detected (NOT DETECT) 02/17/25 16:13 Human Metapneumovir PCR Not detected (NOT DETECT) 02/17/25 16:13 Influenza A (H1) PCR Not detected (NOT DETECT) 02/17/25 16:13 Influ A (H1/09) PCR Not detected (NOT DETECT) 02/17/25 16:13 Influenza A (H3) PCR Not detected (NOT DETECT) 02/17/25 16:13 Influenza Type A (PCR) Not detected (NOT DETECT) 02/17/25 16:13 Influenza Type B (PCR) Not detected (NOT DETECT) 02/17/25 16:13 M. pneumoniae (PCR) Not detected (NOT DETECT) 02/17/25 16:13 Parainfluenza 1 (PCR) Not detected (NOT DETECT) 02/17/25 16:13 Parainfluenza 2 (PCR) Not detected (NOT DETECT) 02/17/25 16:13 Parainfluenza 3 (PCR) Not detected (NOT DETECT) 02/17/25 16:13 Parainfluenza 4 (PCR) Not detected (NOT DETECT) 02/17/25 16:13 RSV Type A (PCR) Not detected (NOT DETECT) 02/17/25 16:13 RSV Type B (PCR) Not detected (NOT DETECT) 02/17/25 16:13 Entero/Rhino (PCR) Not detected (NOT DETECT) 02/17/25 16:13 SARS-CoV-2 (PCR) Not detected (NOT DETECT) 02/17/25 16:13 Imaging Echo: Radiologist's impression: LV systolic function is moderate to severely reduced with EF of 30-35% Moderately hypokinetic RV. Left atrial dilation Mild mitral regurgitation Mild aortic regurgitation. Mild tricuspid regurgitation. No comparion studies are available. Vitals Last Vital Signs Temp 97.6 F 02/21/25 11:50 Pulse 82 02/21/25 11:50 Resp 18 02/21/25 11:50 BP 104/49 02/21/25 11:50 Pulse Ox 96 02/21/25 11:50 O2 Del Method Room Air 02/21/25 11:50 Discharge Plan Discharge Patient Disposition: Home Condition: Stable Prescriptions: New aspirin 81 mg Tablet,Delayed Release (Dr/Ec) 81 mg PO DAILY Qty: 30 0RF docusate sodium 100 mg Capsule 100 mg PO BID Qty: 60 0RF lactulose 10 gram/15 mL Solution 10 g PO DAILY PRN (Reason: Constipation (see protocol)) Qty: 300 0RF metoprolol tartrate 25 mg Tablet 37.5 mg PO BID Qty: 90 0RF insulin glargine [Lantus U-100 Insulin] 100 unit/mL Solution 10 unit SUBCUT BEDTIME Qty: 10 0RF fluconazole 100 mg Tablet 100 mg PO BID Qty: 24 0RF Continued furosemide 40 mg tablet See Rx Instructions .ROUTE .COMPLEX Qty: 90 3RF Dose Instruction: TAKE ONE TABLET BY MOUTH DAILY Rx Instructions: TAKE ONE TABLET BY MOUTH DAILY hydralazine 50 mg tablet See Rx Instructions .ROUTE .COMPLEX 90 Days Qty: 180 3RF Dose Instruction: TAKE ONE TABLET BY MOUTH TWICE DAILY Rx Instructions: TAKE ONE TABLET BY MOUTH TWICE DAILY levothyroxine 88 mcg tablet See Rx Instructions .ROUTE .COMPLEX Qty: 90 3RF Dose Instruction: TAKE ONE TABLET BY MOUTH DAILY Rx Instructions: TAKE ONE TABLET BY MOUTH DAILY potassium chloride 10 mEq tablet extended release See Rx Instructions .ROUTE .COMPLEX Qty: 90 3RF Dose Instruction: TAKE ONE TABLET BY MOUTH DAILY Rx Instructions: TAKE ONE TABLET BY MOUTH DAILY quetiapine 25 mg tablet 25 mg PO DAILY 90 Days Qty: 90 3RF rosuvastatin 10 mg tablet See Rx Instructions .ROUTE .COMPLEX 90 Days Qty: 90 3RF Dose Instruction: TAKE ONE TABLET BY MOUTH DAILY Rx Instructions: TAKE ONE TABLET BY MOUTH DAILY solifenacin 5 mg tablet See Rx Instructions .ROUTE .COMPLEX 90 Days Qty: 90 3RF Dose Instruction: TAKE ONE TABLET BY MOUTH EVERY DAY Rx Instructions: TAKE ONE TABLET BY MOUTH EVERY DAY (DME) Diabetic Shoes with toe filler to right great toe 3 Pairs of Inserts See Rx Instructions .Route .MEDSUPPLY Qty: 1 0RF Rx Instructions: As directed by HOME magnesium hydroxide [Milk of Magnesia] 400 mg/5 mL Suspension 30 ml PO DAILY PRN (Reason: Constipation) alum-mag hydroxide-simeth [Mylanta] 200-200-20 mg/5 mL Suspension 30 ml PO QID PRN (Reason: indigestion ) Rx Instructions: administer between meals and at bedtime polyethylene glycol 3350 17 gram/dose Powder 17 g PO DAILY PRN (Reason: Constipation) naloxone 2 mg/2 mL Syringe Kit 2 mg IM Q2M PRN (Reason: overdose) Rx Instructions: NTExceed 10 mg total dose/episode Discontinued metoprolol tartrate 25 mg tablet 12.5 mg PO BID 90 Days Qty: 90 3RF Discharge Order = DC NOW: Discharge Order (Routine); Ordered 02/21/25 Ordered By: Rell Humphrey Referrals: CRYSTAL Couch, [facility] NURSE [Primary Care Provider, [facility]] - 02/28/25 1:45 pm Discharge Diet: Diabetic Discharge Activity: Increase activity as tolerated Patient Instructions: Opioid Safety, Patient Portal & Kitty Instructions Activity Restrictions/Additional Instructions: Eat a 1400-calorie diet Take Lantus once a day as prescribed Take Discharge Attestations Time Spent in Discharge Care*: greater than 30 min Time Spent in Smoking Cessation: Not a smoker Quality Metrics Clinical Quality Measures [ No reported AMI, CVA or VTE this stay] Coding Level of Care Code 89977 Diagnoses Diabetic ketoacidosis E11.10 Atrial fibrillation with RVR I48.91 Essential hypertension I10 Peripheral arterial disease I73.9 Advanced dementia F03.C0 Uncontrolled type 2 diabetes mellitus Acute cystitis without hematuria N30.00 Hematuria presence: without hematuria Urinary tract infection type: acute cystitis Time Spent (min) 40
[2025-02-21] MEDS: heparin 5,000 unit/mL INJ 1 mL 5000 UNIT SUBCUT (14:41)
--- NOTE | 2025-02-21 15:13 | PC.NURSE ---
Called report to Aida Mandujano RN at [facility].
--- NOTE | 2025-02-21 15:16 | PC.NURSE ---
Notified Dr. Humphrey patient still has zambrano that was placed here. Dr. Humphrey stated he wanted the nursing facility to do a voiding trial to make sure patient can void. Aida Mandujano RN notified at [facility].
[2025-02-21 16:04] VITALS: BP 104/49; PULSE 82; RESP 18; TEMP 36.4; O2SAT 96
== END 2025-02-21 15:45 | disposition skilled nursing facility (03) | DRG 638 ==
LOC: ER 13:20 → ICU 14:07 → MEDSURG 02-18 22:01
PROVIDERS: Internal Medicine; Admitting Provider Student in an Organized Health Care Education/Training Program; Emergency Provider Family Medicine; PCP Nurse Practitioner Family; Visit Provider Internal Medicine
DX: E11.10 Type 2 diabetes mellitus with ketoacidosis without coma (principal); B37.41 Candidal cystitis and urethritis; N17.9 Acute kidney failure, unspecified; N30.00 Acute cystitis without hematuria; I48.91 Unspecified atrial fibrillation; I12.9 Hypertensive chronic kidney disease with stage 1 through stage 4 chronic kidney disease, or unspecified chronic kidney disease; E11.22 Type 2 diabetes mellitus with diabetic chronic kidney disease; N18.9 Chronic kidney disease, unspecified; I73.9 Peripheral vascular disease, unspecified; F03.C0 Unspecified dementia, severe, without behavioral disturbance, psychotic disturbance, mood disturbance, and anxiety; T38.3X6A Underdosing of insulin and oral hypoglycemic [antidiabetic] drugs, initial encounter; G89.29 Other chronic pain; M54.9 Dorsalgia, unspecified; E78.2 Mixed hyperlipidemia; I25.2 Old myocardial infarction; Z87.440 Personal history of urinary (tract) infections; Z91.128 Patient's intentional underdosing of medication regimen for other reason; Z79.4 Long term (current) use of insulin; Z79.82 Long term (current) use of aspirin; Z89.411 Acquired absence of right great toe
CPT/HCPCS: 36415; 36416; 36600; 51702; 71045; 73620; 74176; 80048; 80051; 80053; 80061; 80202; 81001; 82009; 82330; 82607; 82746; 82805; 82962; 83036; 83605; 83735; 84100; 84145; 84443; 85025; 87040; 87086; 87106; 87486; 87581; 87633; 92523; 92610; 93005; 93306; 94664; 96365; 96372; 96375; 99285; J0696; J1644; J1815; J1956; J3373; J3475; J3480; J3490; J7030; J7040; J9999

== ENCOUNTER 2025-03-11 17:23 | Emergency (ER) | payer MEDICARE, SELFPAY ==
[2025-03-11 17:23] VITALS: BP 123/82; PULSE 102; RESP 16; TEMP 36.7; O2SAT 100; BMI 28.1
--- OUTSIDE RECORDS SUMMARY | 2025-03-11 17:32 | XMS_ITS | Clinical Summary ---
Author Organization [facility] Address [address] [place] [address] Care Team Providers Care Gas Appliance Repairer Name Role Phone Nico Pitt MD Primary Care Provider [phone] Allergies Active Allergy Reactions Criticality Noted Date Comments Amoxicillin Unknown 11/24/2024 Baclofen Unknown 11/24/2024 Cortisone Unknown 11/24/2024 Gabapentin Unknown 11/24/2024 Shellfish Containing Products Unknown 2024 Medications No known medications Active Problems Problem Noted Date Diagnosed Date Atrial fibrillation with RVR 03/01/2025 Diabetic ketoacidosis 03/01/2025 History of amputation of right great toe 025 Hammertoe, bilateral 03/01/2025 Peripheral arterial disease 03/01/2025 S/P foot surgery 03/01/2025 Type 2 diabetes mellitus wit h hyperglycemia, with long-term current use of insulin 12/15/2024 Needle phobia 12/15/2024 Acquired hypothyroidism 12/15/2024 Essential hypertension 12/15/2024 Hyperlipidemia 12/15/2024 Overactive bladder 12/15/2024 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 12/15/2024 Resolved Problems Problem Noted Date Diagnosed Date Resolved Date Osteomyelitis of great toe of right foot 03/01/2025 03/01/2025 Diabetic peripheral neuropat hy associated with type 2 diabetes mellitus 03/01/2025 03/01/2025 Plantar fasciitis, right 03/01/2025 Encounters Date Type Department Care Team Description 02/24/2025 [facility]phone [facility] [address] [facility] [address] [place] [address] Edvin Vann from Last 3 Months Social History Tobacco Use Types Packs/Day Years Used Date Smoking Tobacco: Unknown Tobacco Cessation:Counseling Given: Not Answered Alcohol Use Standard Drinks/Week Comments Defer 0 (1 standard drink = 0.6 oz pur e alcohol) PHQ-2 Answer Date Recorded PHQ-2 Score 0 01/11/2025 Comments Unknown Sex and Gender Information Value Date Recorded Sex Assigned at Not on file Legal Sex Female 3:48 PM CDT Gender Identity Not on file Sexual Orientation Not on file Last Filed Vital Signs Vital Sign Reading Time Taken Comments Blood Pressure 158/72 02/15/2025 9:58 AM CDT Pulse 79 02/15/2025 9:58 AM CDT Temperature 36.6 C (97.8 F) 02/15/2025 9:58 AM CDT Respiratory Rate 19 02/15/2025 9:58 AM CDT Oxygen Saturation 97% 02/15/2025 9:58 AM CDT Inhaled Oxygen Concentration - - Weight 76.4 kg (168 lb 6.4 oz) 02/15/2025 9:58 A M CDT Height 165.1 cm (5' 5 ) 02/15/2025 9:58 AM CDT Body Mass Index 28.02 02/15/2025 9:58 AM CDT Plan of Treatment Upcoming Encounters Date Type Department Care Team (Late st Contact Info) Description 03/15/2025 8:25 AM PIPE FITTER External [facility] [address] [facility] [address] [place] [address] Nico Pitt MD [address] [facility] [address] [place] [address] Health Maintenance Due Date Last Done Comments Foot Exam 1942 Hemoglobin A1C 1942 Medicare Annual Wellness 1942 Ophthalmology Exam 1952 Urine Microalbumin 1952 Pneumococcal Vaccine: 50+ Ye ars (1 of 2 - PCV) 1961 Td, Tdap Vaccines Adult 1961 Mammogram 1982 Colonoscopy 1987 Shingrix (ZOSTER RECOMBINANT ) (1 of 2) 1992 Bone Density Scan (DXA Scan) 2007 RSV 60+ (1 - 1-dose 75+ series) 2017 Influenza Vaccination (#1) 2024 HIB Vaccines Aged Out No longer eligi ble based on patient's age to complete this topic HPV Vaccines Aged Out No longer eligi ble based on patient's age to complete this topic Hepatitis A Vaccines Aged Out No long er eligible based on patient's age to complete this topic Hepatitis B Vaccines Aged Out No long er eligible based on patient's age to complete this topic IPV Vaccines Aged Out No longer eligi ble based on patient's age to complete this topic Meningococcal Vaccines Aged Out No lo nger eligible based on patient's age to complete this topic RSV Mab Nirsevimab (Beyfortu s) <20 months Aged Out No longer eligible b ased on patient's age to complete this topic Rotavirus Vaccines Aged Out No longer eligible based on patient's age to complete this topic Insurance MEDICARE Care Teams Gas Appliance Repairer Relationship Specialty Start Date End Date Nico Pitt MD [address] [place] [address] PCP - General Internal Medicine 11/24/24
--- NOTE | 2025-03-11 17:40 | XRR_ITS ---
PROCEDURE INFORMATION: Exam: XR Chest Exam date and time: 03/11/2025 6:36 PM Age: 84 years old Clinical indication: Fall TECHNIQUE: Imaging protocol: Radiologic exam of the chest. Views: 1 view. COMPARISON: CR XR chest 1V portable [id number] 02/17/2025 12:46 PM FINDINGS: Lungs: Hazy opacities in the left lung base. No dense consolidation. Pleural spaces: Unremarkable. Small left pleural effusion. No pneumothorax. Heart/Mediastinum: Unremarkable. No cardiomegaly. Bones/joints: Left shoulder arthroplasty. No displaced fracture. XR/XR chest 1V portable [id number] IMPRESSION: Hazy opacities in the left lung base may represent layering pleural fluid, overlapping structures, or less likely infection. No dense consolidation. May
--- NOTE | 2025-03-11 17:40 | CTR_ITS ---
PROCEDURE INFORMATION: Exam: CT Cervical Spine Without Contrast Exam date and time: 03/11/2025 5:51 PM Age: 84 years old Clinical indication: Injury or trauma; Blunt trauma; EMS arrival from [facility] for witnessed ground level fall. C collar in place. History of dementia. TECHNIQUE: Imaging protocol: Computed tomography of the cervical spine without contrast. Radiation optimization: All CT scans at this facility use at least one of these dose optimization techniques: automated exposure control; mA and/or kV adjustment per patient size (includes targeted exams where dose is matched to clinical indication); or iterative reconstruction. COMPARISON: CR XR chest 1V portable [id number] 02/17/2025 12:46 PM RADIATION DOSE METRICS: Total DLP (mGy-cm): 218.2 FINDINGS: Bones: Bony fusion of the bilateral facets at C2-C3 and C5-C6. Severe degenerative disc disease at C6-C7. No acute cervical spine fracture or listhesis. Lungs: Lung apices are normal. Soft tissues: Unremarkable. CT/CT cervical spin wo con* [id number] IMPRESSION: No acute cervical spine fracture.
--- NOTE | 2025-03-11 17:40 | XRR_ITS ---
PROCEDURE INFORMATION: Exam: XR Bilateral Hips Exam date and time: 03/11/2025 6:27 PM Age: 84 years old Clinical indication: Fall TECHNIQUE: Imaging protocol: Radiologic exam of the bilateral hips. Views: 2 views of hips with pelvis when performed. 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 Hardware appears intact. No periprosthetic fracture. Pelvic ring is intact. Diffuse osseous demineralization. Soft tissues: Unremarkable. XR/XR hip BI 3-4V wo/w pel [id number] IMPRESSION: No acute osseous abnormality.
--- NOTE | 2025-03-11 17:40 | CTR_ITS ---
PROCEDURE INFORMATION: Exam: CT Head Without Contrast Exam date and time: 03/11/2025 5:51 PM Age: 84 years old Clinical indication: Injury or trauma; Blunt trauma (contusions or hematomas); EMS arrival from longterm for witnessed ground level fall. C collar in place. History of dementia. TECHNIQUE: Imaging protocol: Computed tomography of the head without contrast. Radiation optimization: All CT scans at this facility use at least one of these dose optimization techniques: automated exposure control; mA and/or kV adjustment per patient size (includes targeted exams where dose is matched to clinical indication); or iterative reconstruction. COMPARISON: CT cervical spin wo con* [id number] 03/11/2025 5:51 PM RADIATION DOSE METRICS: Total DLP (mGy-cm): 876.2 FINDINGS: Brain: Subcortical and periventricular white matter changes consistent with small-vessel ischemic disease in the appropriate clinical setting. Small-vessel ischemic disease. No acute intracranial abnormality. Cerebral ventricles: No ventriculomegaly. Paranasal sinuses: Visualized sinuses are unremarkable. No fluid levels. Mastoid air cells: Visualized mastoid air cells are well aerated. Bones: Chronic and benign-appearing cortical defect of the inner table of the frontal skull near the vertex. Soft tissues: Unremarkable. CT/CT head wo con* [id number] IMPRESSION: 1. No acute intracranial abnormality. 2. Small-vessel ischemic disease.
--- NOTE | 2025-03-11 17:41 | W.ED.FALL ---
HPI - Fall General: Chief Complaint: Fall Stated Complaint: fall - right hip pain Time Seen by Provider: 03/11/25 17:29 Source: other ([facility]) Mode of arrival: EMS Limitations: altered mental status (chronic severe dementia ) History of Present Illness: Patient is an 84-year-old female with a history of severe dementia here from her [place] [facility] at [facility] for evaluation following a fall. I was not present when EMS arrived with patient therefore I did not obtain a history from them. The nurse taking care of the patient as well as the charge nurse were not able to provide much report other than she had a fall at the [place] [facility]. Due to patient's dementia, essentially no history can be gathered from her. She does arrive wearing a c-collar. It is unknown whether the fall was witnessed. Unknown LOC. Unknown prolonged down time. I am not sure what patient is ambulatory at baseline status is. We will try and contact [facility] directly for history. Nursing staff was able to contact [facility] who stated that patient is at baseline minimally ambulatory. They reportedly sat her at her dining room chair for dinner and shortly after heard her fall. They reported her right leg was shortened and rotated thus prompting them to call EMS. Unsure whether she struck her head. There did not seem to be any loss of consciousness. They did report patient is at her normal mental baseline status. MD complaint: fall Onset (ago): hour(s) Fall from: standing Place fall occurred: [place] [facility] Related Data Home Medications ?Medication ?Instructions ?Recorded ?Confirmed aluminum-mag hydroxide-simethicone 30 ml PO QID PRN indigestion 02/18/25 02/18/25 200 mg-200 mg-20 mg/5 mL oral susp magnesium hydroxide 400 mg/5 mL 30 ml PO DAILY PRN Constipation 02/18/25 02/18/25 oral suspension (Milk of Magnesia) naloxone 2 mg/2 mL syringe kit 2 mg IM Q2M PRN overdose 02/18/25 02/18/25 polyethylene glycol 3350 17 17 g PO DAILY PRN Constipation 02/18/25 02/18/25 gram/dose oral powder Previous Rx's ?Medication ?Instructions ?Recorded Diabetic Shoes with toe filler to #1 ea 08/01/23 right great toe 3 Pairs of Inserts furosemide 40 mg tablet See Rx Instructions .Route 09/03/24 .COMPLEX #90 tabs hydralazine 50 mg tablet See Rx Instructions .Route 09/03/24 .COMPLEX 90 days #180 tabs levothyroxine 88 mcg tablet See Rx Instructions .Route 09/03/24 .COMPLEX #90 tabs potassium chloride 10 mEq See Rx Instructions .Route 09/03/24 tablet,extended release .COMPLEX #90 tabs quetiapine 25 mg tablet 25 mg PO DAILY 90 days #90 tabs 09/03/24 rosuvastatin 10 mg tablet See Rx Instructions .Route 09/03/24 .COMPLEX 90 days #90 tabs solifenacin 5 mg tablet See Rx Instructions .Route 09/03/24 .COMPLEX 90 days #90 tabs aspirin 81 mg tablet,delayed 81 mg PO DAILY #30 tabs 02/21/25 release docusate sodium 100 mg capsule 100 mg PO BID #60 caps 02/21/25 fluconazole 100 mg tablet 100 mg PO BID #24 tabs 02/21/25 insulin glargine 100 unit/mL 10 unit (0.1 mL) SUBCUT BEDTIME 02/21/25 subcutaneous solution (Lantus #10 mL U-100 Insulin) lactulose 10 gram/15 mL oral 10 g (15 mL) PO DAILY PRN 02/21/25 solution Constipation (see protocol) #300 mL metoprolol tartrate 25 mg tablet 37.5 mg (1.5 x 25 mg) PO BID #90 02/21/25 tabs cefdinir 300 mg capsule 300 mg PO BID 10 days #20 caps 03/11/25 Allergies Allergy/AdvReac Type Severity Reaction Status Date / Time amoxicillin Allergy Unknown Unknown Verified 09/03/24 15:04 baclofen Allergy Unknown Unknown Verified 09/03/24 15:04 cortisone Allergy Unknown Unknown Verified 09/03/24 15:04 gabapentin Allergy Unknown Unknown Verified 09/03/24 15:04 shellfish derived Allergy Unknown Unknown Verified 09/03/24 15:04 Eddmzov-BDC-UdO Reductase Allergy Unknown Unknown Verified 09/03/24 15:04 Inhibitor Review of Systems General: Reports: ROS unobtainable due to medical condition and ROS unobtainable due to mental status Narrative: pt has severe baseline dementia and no information can be gathered from her [facility] ED PFSH: Medical History Uncontrolled type 2 diabetes mellitus Advanced dementia 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 and midfoot with fat layer exposed Atrial fibrillation Non-pressure chronic ulcer of other part of right foot with fat layer exposed Back pain, chronic Upper respiratory infection Urinary tract infection Encounter for laboratory test Urinary incontinence Dementia History of [place] (myocardial infarction) Essential hypertension Mixed hyperlipidemia Diabetes type 2, controlled Surgical History S/P foot surgery Social History Smoking and tobacco/nicotine status: unknown if used tobacco/nicotine Physical Exam Const: COMMON NORMALS: no acute distress, average body habitus, alert and well nourished GENERAL APPEARANCE: cooperative OTHER: severe dementia; not oriented which is reportedly normal for her HENMT: COMMON NORMALS: normocephalic and atraumatic HEAD & SCALP: normal to inspection, normocephalic and atraumatic FACE & SINUS: normal facial exam and face symmetric Eye: COMMON NORMALS: Equal, round and reactive pupils present and EOMs intact bilaterally GENERAL EYE: appearance normal, both eyes and all related structures and normal light reflex PUPIL: Yes Equal, round and reactive pupils present DIRECT OPHTHALMOSCOPY: Yes normal light reflex Neck/C-Spine: OTHER: pt in cervical collar upon arrival from EMS-this was not removed Chest: COMMONS NORMALS: normal inspection of the chest and normal palpation of entire chest wall Resp: COMMON NORMALS: normal respiratory effort and clear to auscultation bilaterally AUSCULTATION: clear to auscultation bilaterally Cardio: COMMON NORMALS: regular rate and regular rhythm RATE: regular rate RHYTHM: regular rhythm GI: COMMON NORMALS: Normal to inspection, nondistended, normoactive bowel sounds present, Soft to palpation and non-tender PALPATION: Yes Soft to palpation Back/Pelvis: OTHER: seems to have generalized discomfort throughout her back Extremity: COMMON NORMALS: capillary refill normal GENERAL: Yes normal exam except as noted OTHER: complains of pain to L heel-skin tear/ulcer here; she does passively allow me to move her knees/hips without significant discomfort; NV intact; no shortening or rotation noted on my examination Neuro: COMMON NORMALS: moves all extremities and no focal motor deficits SENSORIUM/ORIENTATION: Yes alert Course Vital Signs: Vital signs: Vital Signs Temperature 98.1 F 03/11/25 17:23 Pulse Rate 93 03/11/25 21:00 Respiratory Rate 16 03/11/25 17:23 Blood Pressure 136/60 03/11/25 21:00 Pulse Oximetry 97 03/11/25 21:00 Oxygen Delivery Me thod Room Air 03/11/25 21:00 MDM - Fall Medical Decision Making Patient is an 84-year-old severely demented patient here from her [place] [facility] after a fall from her dining room chair. According to [place] [facility] staff, they were concerned that her right leg looked shortened and rotated. X-ray imaging of her bilateral hips and pelvis were obtained here and I do not visualize any acute fractures. Obtained CT scan of her head and cervical spine which were unremarkable. Vital signs are stable. Blood work overall is nonactionable. She is known diabetic. Creatinine is at baseline. UA appears grossly infected but urine looks like this on her last hospitalization and she grew Ignacia species. She is on Diflucan for this. She was nitrate positive today. She has had recent instrumentation. I think is reasonable to cover with antibiotics. EKG showing known atrial fibrillation. Baseline troponin of 42. 2-hour trop declining. I would have a low suspicion for any type of cardiac event. AT this time I believe patient is stable for discharge back to her [place] [facility]. Medical Records I reviewed the patient's medical records. Lab Data I reviewed the patient's lab results. 03/11/25 18:10 03/11/25 18:10 Radiology Impressions Cervical Spine CT 03/11/25 17:40 IMPRESSION: No acute cervical spine fracture. Chest X-Ray 03/11/25 17:40 IMPRESSION: Hazy opacities in the left lung base may represent layering pleural fluid, overlapping structures, or less likely infection. No dense consolidation. May Head CT 03/11/25 17:40 IMPRESSION: 1. No acute intracranial abnormality. 2. Small-vessel ischemic disease. Hip/Pelvis X-Ray 03/11/25 17:40 IMPRESSION: No acute osseous abnormality. Laboratory Results WBC 11.14 10^3/uL (3.29-11.43) 03/11/25 18:10 RBC 4.04 10^6/uL (3.85-5.65) 03/11/25 18:10 Hgb 12.70 g/dL (11.27-16.99) 03/11/25 18:10 Hct 39.3 % (36-47) 03/11/25 18:10 MCV 97.3 fl (85-98) 03/11/25 18:10 MCH 31.4 pg (27-33) 03/11/25 18:10 MCHC 32.3 g/dL (30-55) 03/11/25 18:10 RDW 15.5 % (12.1-15.1) H 03/11/25 18:10 Plt Count 236 10^3/cmm (157-399) 03/11/25 18:10 MPV 8.7 fL (7.4-10.4) 03/11/25 18:10 Neut % (Auto) 79.8 % 03/11/25 18:10 Lymph % (Auto) 9.2 % 03/11/25 18:10 Wise % (Auto) 9.5 % 03/11/25 18:10 Eos % (Auto) 0.4 % 03/11/25 18:10 Baso % (Auto) 0.7 % 03/11/25 18:10 Neut # (Auto) 8.88 10^3/uL (1.8-7.7) H 03/11/25 18:10 Lymph # (Auto) 1.0 10^3/uL (0.8-4.8) 03/11/25 18:10 Wise # (Auto) 1.1 10^3/uL (0.2-0.9) H 03/11/25 18:10 Eos # (Auto) 0.1 10^3/uL (0.0-0.8) 03/11/25 18:10 Baso # (Auto) 0.1 10^3/uL (0.0-0.1) 03/11/25 18:10 Nucleated RBC % (auto) 0 % 03/11/25 18:10 Nucleated RBCs # 0.0 /100WBC 03/11/25 18:10 Sodium 134 mmol/L (136-145) L 03/11/25 18:10 Potassium 3.4 mmol/L (3.5-5.1) L 03/11/25 18:10 Chloride 93 mmol/L (98-107) L 03/11/25 18:10 Carbon Dioxide 28 mmol/L (22-29) 03/11/25 18:10 Anion Gap 16.4 (5-19) 03/11/25 18:10 BUN 16 mg/dL (8-23) 03/11/25 18:10 Creatinine 1.5 mg/dL (0.5-0.9) H 03/11/25 18:10 GFR Calculation Not Reportable 03/11/25 18:10 Glucose 222 mg/dL (65-115) H 03/11/25 18:10 Calculated Osmolality 286 mOsm/kg (285-295) 03/11/25 18:10 Calcium 8.8 mg/dL (8.5-10.5) 03/11/25 18:10 Total Bilirubin 0.5 mg/dL (0.15-1.2) 03/11/25 18:10 AST 22 U/L (0-32) 03/11/25 18:10 ALT 9 U/L (0-33) 03/11/25 18:10 Alkaline Phosphatase 54 U/L (35-105) 03/11/25 18:10 Creatine Kinase 101 U/L (26-192) 03/11/25 18:10 Troponin T Baseline 42 ng/L (0-10) H 03/11/25 18:10 Troponin T 120 Minute 38.31 ng/L (0-10) H 03/11/25 19:55 Delta Troponin T -3.69 ABS# (0-10) L 03/11/25 19:55 Total Protein 7.0 g/dL (6.6-8.7) 03/11/25 18:10 Albumin 3.0 g/dL (3.5-5.2) L 03/11/25 18:10 Globulin 4.0 g/dL (1.3-4.6) 03/11/25 18:10 Urine Color [place] (Yellow) A 03/11/25 18:53 Urine Appearance Turbid (CLEAR) A 03/11/25 18:53 Urine pH 5.5 (5-7) 03/11/25 18:53 Ur Specific [place] 1.016 (1.005-1.030) 03/11/25 18:53 Urine Protein 2+ (Negative) A 03/11/25 18:53 Urine Glucose (UA) 3+ (Normal) H 03/11/25 18:53 Urine Ketones Negative (Negative) 03/11/25 18:53 Urine Blood 3+ (Negative) A 03/11/25 18:53 Urine Nitrate Positive (Negative) A 03/11/25 18:53 Urine Bilirubin Negative (Negative) 03/11/25 18:53 Urine Urobilinogen 1.0 mg/dL (Negative) 03/11/25 18:53 Ur Leukocyte Esterase 3+ (Negative) A 03/11/25 18:53 Urine RBC >100 /hpf (0-2) H 03/11/25 18:53 Urine WBC >100 /hpf (0-5) H 03/11/25 18:53 Ur Squamous Epith Cells 0-5 /hpf (0-5) 03/11/25 18:53 Amorphous Sediment Not Reportable 03/11/25 18:53 Urine Bacteria 4+ /hpf (NONE) H 03/11/25 18:53 Hyaline Casts 7.85 /lpf 03/11/25 18:53 All radiology interpretation(s) finalized by discharge Discharge Plan Discharge Patient Disposition: Home Clinical Impression: Acute UTI Fall Qualifiers: Encounter type: initial encounter Qualified Code(s): W19.XXXA - Unspecified fall, initial encounter Condition: Stable Prescriptions: New cefdinir 300 mg capsule 300 mg PO BID 10 Days Qty: 20 0RF No Action furosemide 40 mg tablet See Rx Instructions .ROUTE .COMPLEX Qty: 90 3RF Dose Instruction: TAKE ONE TABLET BY MOUTH DAILY Rx Instructions: TAKE ONE TABLET BY MOUTH DAILY hydralazine 50 mg tablet See Rx Instructions .ROUTE .COMPLEX 90 Days Qty: 180 3RF Dose Instruction: TAKE ONE TABLET BY MOUTH TWICE DAILY Rx Instructions: TAKE ONE TABLET BY MOUTH TWICE DAILY levothyroxine 88 mcg tablet See Rx Instructions .ROUTE .COMPLEX Qty: 90 3RF Dose Instruction: TAKE ONE TABLET BY MOUTH DAILY Rx Instructions: TAKE ONE TABLET BY MOUTH DAILY potassium chloride 10 mEq tablet extended release See Rx Instructions .ROUTE .COMPLEX Qty: 90 3RF Dose Instruction: TAKE ONE TABLET BY MOUTH DAILY Rx Instructions: TAKE ONE TABLET BY MOUTH DAILY quetiapine 25 mg tablet 25 mg PO DAILY 90 Days Qty: 90 3RF rosuvastatin 10 mg tablet See Rx Instructions .ROUTE .COMPLEX 90 Days Qty: 90 3RF Dose Instruction: TAKE ONE TABLET BY MOUTH DAILY Rx Instructions: TAKE ONE TABLET BY MOUTH DAILY solifenacin 5 mg tablet See Rx Instructions .ROUTE .COMPLEX 90 Days Qty: 90 3RF Dose Instruction: TAKE ONE TABLET BY MOUTH EVERY DAY Rx Instructions: TAKE ONE TABLET BY MOUTH EVERY DAY (DME) Diabetic Shoes with toe filler to right great toe 3 Pairs of Inserts See Rx Instructions .Route .MEDSUPPLY Qty: 1 0RF Rx Instructions: As directed by HOME magnesium hydroxide [Milk of Magnesia] 400 mg/5 mL Suspension 30 ml PO DAILY PRN (Reason: Constipation) alum-mag hydroxide-simeth 200-200-20 mg/5 mL Suspension 30 ml PO QID PRN (Reason: indigestion ) Rx Instructions: administer between meals and at bedtime polyethylene glycol 3350 17 gram/dose Powder 17 g PO DAILY PRN (Reason: Constipation) naloxone 2 mg/2 mL Syringe Kit 2 mg IM Q2M PRN (Reason: overdose) Rx Instructions: NTExceed 10 mg total dose/episode insulin glargine [Lantus U-100 Insulin] 100 unit/mL Solution 10 unit SUBCUT BEDTIME Qty: 10 0RF aspirin 81 mg Tablet,Delayed Release (Dr/Ec) 81 mg PO DAILY Qty: 30 0RF docusate sodium 100 mg Capsule 100 mg PO BID Qty: 60 0RF metoprolol tartrate 25 mg Tablet 37.5 mg PO BID Qty: 90 0RF lactulose 10 gram/15 mL Solution 10 g PO DAILY PRN (Reason: Constipation (see protocol)) Qty: 300 0RF fluconazole 100 mg Tablet 100 mg PO BID Qty: 24 0RF Discharge Orders: Discharge ED (Routine); Ordered 03/11/25 Ordered By: Kvng Enrique Referrals: CRYSTAL Couch, SONNY [Primary Care Provider, Family Practice] Patient Instructions: Patient Portal & Kitty Instructions Activity Restrictions/Additional Instructions: Patient had CT imaging of her head and cervical spine which were unremarkable. She did have x-rays of her bilateral hips which did not show any hip or pelvis fracture. Vital signs have been stable. Blood work overall is nonactionable. UA still with evidence of infection. She can continue her Diflucan based on her last urine culture from when she was in the hospital. Will cover for bacterial infection with antibiotics. These have been called into pharmacy on file. Print Language: Polish Coding Level of Care Code ED Etcher Electrolytic for Adrian Nobles
--- NOTE | 2025-03-11 17:58 | PC.NURSE ---
PER [place], PATIENT WAS SAT UP AROUND TV AREA AND WAS FOUND LYING ON THE FLOOR BY STAFF. PATIENT STATES LYING ON BACK AND RIGHT HIP AND FOOT WAS ROTATED OUT. PATIENT NORMALLY STAND AND PIVOTS AND CAN WALK ABOUT 10 FEET. PATIENT RECENTLY DISCHARGED FROM [facility].
--- NOTE | 2025-03-11 18:03 | ECG_ITS ---
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 Measurements Intervals [place] Rate: 93 P: 0 MN: 0 QRS: 265 QRSD: 158 T: 6 QT: 398 QTc: 495 Interpretive Statements ATRIAL FIBRILLATION WITH ABERRANT CONDUCTION OR VENTRICULAR PREMATURE COMPLEXES RIGHT AXIS DEVIATION [QRS AXIS > 100] RIGHT BUNDLE BRANCH BLOCK [120+ ms QRS DURATION, UPRIGHT V1, 40+ ms S IN I/aVL/V4/V5/V6] Compared to ECG 02/17/2025 12:05:38 Ventricular premature complex(es) now present Aberrant conduction of supraventricular beat(s) now present Right-axis deviation now present Left anterior fascicular block no longer present Electronically Signed On 03-12-2025 08:30:55 HUMAN RESOURCES TECHNICIAN by Tato Verdugo M.D. [id number]
[2025-03-11 18:18] VITALS: BP 115/76; PULSE 94; O2SAT 100
[2025-03-11 18:28] LABS: Hematocrit 39.3 % (36-47); Hemoglobin 12.70 g/dL (11.27-16.99); Mean Corpuscular HGB Conc 32.3 g/dL (30-55); Mean Corpuscular Hemoglobin 31.4 pg (27-33); Mean Corpuscular Volume 97.3 fl (85-98); Nucleated Red Blood Cells % 0 %; Platelet Count 236 10^3/cmm (157-399); Red Blood Count 4.04 10^6/uL (3.85-5.65); White Blood Count 11.14 10^3/uL (3.29-11.43)
[2025-03-11 18:34] LABS: Alanine Aminotransferase 9 U/L (0-33); Albumin Level 3.0 g/dL (3.5-5.2); Alkaline Phosphatase 54 U/L (35-105); Anion Gap 16.4 (5-19); Aspartate Amino Transferase 22 U/L (0-32); Blood Urea Nitrogen 16 mg/dL (8-23); Calcium 8.8 mg/dL (8.5-10.5); Carbon Dioxide 28 mmol/L (22-29); Chloride 93 mmol/L (98-107); Creatinine Clr Calc Pharmacy 31.7797; Globulin 4.0 g/dL (1.3-4.6); Glucose 222 mg/dL (65-115); Osmolality Calculated 286 mOsm/kg (285-295); Potassium 3.4 mmol/L (3.5-5.1); Sodium 134 mmol/L (136-145); Total Protein 7.0 g/dL (6.6-8.7)
[2025-03-11 18:37] LABS: Troponin(5th) Baseline 42 ng/L (0-10)
[2025-03-11 19:05] LABS: Glucose Urine UA 3+ (Normal); Nitrate Urine Positive (Negative); Specific Gravity, Urine 1.016 (1.005-1.030)
[2025-03-11 19:11] LABS: Add Urine Microscopic? YES; Universal Test for UA Present (0)
--- NOTE | 2025-03-11 19:40 | ECG_ITS ---
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 Measurements Intervals [place] Rate: 93 P: 0 AR: 0 QRS: -83 QRSD: 155 T: 33 QT: 404 QTc: 503 Interpretive Statements ATRIAL FIBRILLATION LEFT AXIS DEVIATION [QRS AXIS < -30] RIGHT BUNDLE BRANCH BLOCK [120+ ms QRS DURATION, UPRIGHT V1, 40+ ms S IN I/aVL/V4/V5/V6] Compared to ECG 03/11/2025 18:03:59 Left-axis deviation now present Ventricular premature complex(es) no longer present Aberrant conduction of supraventricular beat(s) no longer present Right-axis deviation no longer present Electronically Signed On 03-12-2025 13:04:53 HELPDESK TECHNICIAN by Tato Verdugo M.D. [id number]
[2025-03-11 20:06] VITALS: BP 124/67; PULSE 101; O2SAT 100
[2025-03-11 20:18] LABS: Troponin 5 2HR 38.31 ng/L (0-10); Troponin 5 2HR Delta -3.69 ABS# (0-10)
[2025-03-11 21:00] VITALS: BP 136/60; PULSE 93; O2SAT 97
--- NOTE | 2025-03-11 21:24 | PC.NURSE ---
Pt was checked, changed, pt is incontinent of urine and bowel, pt had a wet brief and a small bowel movement. Pt changed placed in dry brief.
== END 2025-03-11 22:14 | disposition home or self-care (01) ==
PROVIDERS: Emergency Provider Physician Assistant; PCP Nurse Practitioner Family
DX: N39.0 Urinary tract infection, site not specified (principal); Z79.4 Long term (current) use of insulin; Z79.82 Long term (current) use of aspirin; E11.9 Type 2 diabetes mellitus without complications; E78.2 Mixed hyperlipidemia; I10 Essential (primary) hypertension
CPT/HCPCS: 36415; 70450; 71045; 72125; 73522; 80053; 81001; 82550; 84484; 85025; 87077; 87086; 87186; 93005; 99285